=== PATIENT | female | born 1960 | race African-American/Black ===

== ENCOUNTER 2017-01-10 09:50 | Emergency (ER) | payer OTHER ==
[2017-01-10 10:13] VITALS: TEMP 97.9; BMI 40.3
--- NOTE | 2017-01-10 10:48 | PDOC ---
History of Present Illness - General Chief Complaint: Shortness of Breath Stated Complaint: SOB Time Seen by Provider: 01/10/17 10:05 History Source: Patient - History of Present Illness Initial Comments: 01/10/17 10:48 Patient is a 56 y.o. female with a PMH of HTN, IDDM and Asthma who presents c/o of a two day h/o of shortness of breath as well as a c/o not knowing how to use her insulin pen properly. Patient states her shortness of breath resolved en route to the hospital and denies any current dyspnea, chest pain, abdominal pain fevers, chills. Patient does note diarrhea two days previous (likely 2/2 to Metformin). Patient was recently (Saturday 01/06) evaluated at [facility] where she was diagnosed with DM and HTN. Patient states she was asymptomatic, she had visited her PCP, Dr. Vasquez, who sent her to the hospital upon finding an elevated BS. Today patient repeatedly c/o not knowing how to use her insulin pen or how to check her blood sugar at home. PMD: Dr. Natalia TAYLOR Surgical: none Social: denies nicotine (quit on Saturday 01/06 following IDDM/HTN diagnosis), denies alcohol, denies recreational drugs Past History - Past Medical History Allergies/Adverse Reactions: Allergies Allergy/AdvReac Type Severity Reaction Status Date / Time No Known Drug Allergies Allergy Verified 01/10/17 10:01 Home Medications: Ambulatory Orders Albuterol Sulfate Inhaler - [Ventolin Hfa Inhaler -] 2 inh PO Q6H 01/10/17 Budesonide/Formeterol Fumarate [SYMBICORT 160/4.5mcg -] 1 inh PO DAILY 01/10/17 Liraglutide [Victoza -] 1.8 mg SQ DAILY@0700 01/10/17 Losartan 50Mg/Hctz 12.5MG [Hyzaar -] 1 tab PO DAILY 01/10/17 Metformin HCl [Glucophage -] 500 mg PO BID 01/10/17 Anemia: No Asthma: No Cancer: No Cardiac Disorders: No CVA: No COPD: No CHF: No Dementia: No Diabetes: No GI Disorders: Yes (acid reflux) Disorders: No HTN: No Hypercholesterolemia: No Liver Disease: No Seizures: No Thyroid Disease: No - Surgical History Appendectomy: Yes Orthopedic Surgery: Yes (ankle sx with hardware) - Suicide/Smoking/Psychosocial Hx Smoking History: Current every day smoker Have you smoked in the past 12 months: Yes Number of Cigarettes Smoked Daily: 6 Information on smoking cessation initiated: No 'Breaking Loose' booklet given: 03/08/12 Hx Alcohol Use: Yes (wine cooler) Substance Use Type: Alcohol Hx Substance Use Treatment: (pcp 03/07/12) Review of Systems - Review of Systems Constitutional: No: Chills, Fever Respiratory: Yes: Shortness of Breath, SOB with Exertion, SOB at Rest Cardiac (ROS): Yes: Lightheadedness. No: Chest Pain ABD/GI: No: Constipated, Diarrhea, Nausea, Vomiting : No: Burning, Dysuria Psychiatric: Yes: Anxiety, Depression All Other Systems: Reviewed and Negative *Physical Exam - Vital Signs Last Vital Signs Temp Pulse Resp BP Pulse Ox 97.9 F 90 18 108/70 98 01/10/17 10:05 01/10/17 10:05 01/10/17 10:05 01/10/17 10:05 01/10/17 10:05 - Physical Exam General Appearance: Yes: Nourished, Obese Neck: positive: Trachea midline, Supple Respiratory/Chest: positive: Lungs Clear, Normal Breath Sounds Cardiovascular: positive: S1, S2 Gastrointestinal/Abdominal: positive: Soft Musculoskeletal: negative: CVA Tenderness Neurologic: positive: Fully Oriented, Alert Medical Decision Making - Medical Decision Making 01/10/17 10:59 Patient is a 56 y.o. female who presents w/a c/o of shortness of breath ( resolved by time of presentation) as well as seeking diabetes education. At presentation patient was breathing comfortably (non-labored respirations, no accessory muscle use) on room air (SpO2 high 90's). Clinical suspicion for acute pulmonary process is low as patient is afebrile, denies cough, pleuritic chest pain and is breathing comfortably. PLAN: 1. CXR, EKG 2. Diabetes education 01/10/17 11:06 CXR shows no acute cardiopulmonary process. Spoke with medical technologist chief @ Dr. Juanjose Blandon's office: Patient evaluated on 01/05 and 01/06; BS 224, HbA1c 7.1, WBC 16.3; will send outpatient prescription for glucometer and home BP monitoring kit. Patient to receive diabetic education on proper use of insulin pen. Patient to be evaluated in Dr. Blandon's office in the next 3-5 days. Patient discharged home with return precautions and diabetic information sheets. *DC/Admit/Observation/Transfer Diagnosis at time of Disposition: Anxiety, Anxiety about health - Discharge Dispostion Disposition: HOME Admit: No - Referrals Referrals: Juanjose Blandon [Primary Care Provider] -
[2017-01-10 11:54] VITALS: BP 118/88; PULSE 92
--- NOTE | 2017-01-10 12:06 | PDOC ---
Attending Attestation - Resident Resident Name: MonroePetrona - ED Attending Attestation I have performed the following: I have examined & evaluated the patient, The case was reviewed & discussed with the resident, I agree w/resident's findings & plan, Exceptions are as noted - HPI HPI: 01/10/17 12:02 56-year-old female with history of asthma, recently diagnosed hypertension and diabetes started on medications on 12/[address] Blandon, presents now with complaints of malfunctioning glucometer, lack of blood pressure cuff, and some difficulty breathing since last night. Patient is frustrated because she states she did not have any counseling or education on monitoring her glucose levels or administering insulin, states her glucometer stopped working today, that she was never prescribed it blood pressure cuff, and at since last night she's had some shortness of breath/ wheezing typical of her underlying asthma. She denies any chest pain or discomfort, denies any exertional symptoms, reports significant weight gain over the last 2 months secondary to diet changes. Never had stress tests, no fevers or chills. - Physicial Exam PE: 01/10/17 12:04 Vital signs are within normal limits, blood pressure is normal, glucose is 113 Exam is within normal limits as noted, heart is regular with subtle one out of 6 systolic ejection murmur and lungs are clear - Medical Decision Making 01/10/17 12:05 Patient seen and evaluated with the resident. I agree with the overall evaluation, assessment, and management with the following summary of visit: 56-year-old female for follow-up of recent outpatient diagnosis, also with nonspecific shortness of breath since last night, but now asymptomatic without signs or symptoms of ACS or PE or underlying infection. Question whether her difficulty breathing was a mild asthma exacerbation that has resolved, or anxiety/frustration given her recent circumstances. She currently has no cardiopulmonary complaints, and is more focused on getting a working glucometer and blood pressure cuff. Her vital signs are normal here, including her glucose level. Chest x-ray shows no acute pathology We'll check EKG Will discuss case with Dr. Blandon's office and arrange expedited follow-up, if labs have not been checked or if expedited follow-up is not likely, may check labs here.
--- NOTE | 2017-01-10 21:55 | EKG ---
Test Reason : Blood Pressure : / mmHG Vent. Rate : 090 BPM Atrial Rate : 090 BPM P-R Int : 158 ms QRS Dur : 080 ms QT Int : 370 ms P-R-T Axes : 036 -22 003 degrees QTc Int : 452 ms NORMAL SINUS RHYTHM MODERATE VOLTAGE CRITERIA FOR LVH, MAY BE NORMAL VARIANT BORDERLINE ECG WHEN COMPARED WITH ECG OF 09-APR-2014 17:21, NO SIGNIFICANT CHANGE WAS FOUND CLINICAL CORRELATION IS RECOMMENDED Confirmed by RHEA COLLADO MD ([id number]) on 01/10/2017 9:54:51 PM Referred By: Confirmed By:RHEA COLLADO MD
== END 2017-01-10 12:55 | disposition home or self-care (01) ==
LOC: JER 09:50
DX: F06.4 Anxiety disorder due to known physiological condition (principal); J45.909 Unspecified asthma, uncomplicated; I10 Essential (primary) hypertension; E11.9 Type 2 diabetes mellitus without complications; Z79.4 Long term (current) use of insulin; Z79.84 Long term (current) use of oral hypoglycemic drugs
CPT/HCPCS: 71020-TC; 93005; 93010; 99284-25

== ENCOUNTER 2017-01-24 02:06 | Emergency (ER) | payer OTHER ==
[2017-01-24 02:26] VITALS: BP 141/76; PULSE 112; TEMP 99.5; BMI 39.4
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
[2017-01-24 04:00] LABS: BASOPHIL 1.4 % (0-2.0); EOSINOPHIL 1.1 % (0-4.5); MCH 28.8 pg (25.7-33.7); MEAN CELL VOLUME 87.3 fl (80-96); MEAN PLT VOLUME 8.8 fl (7.5-11.1); NEUTROPHILS 61.5 % (42.8-82.8); PLATELET COUNT 269 K/MM3 (134-434); RDW 16.3 % (11.6-15.6); WHITE BLOOD COUNT 10.8 K/mm3 (4.0-10.0)
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
[2017-01-24 06:23] LABS: ALBUMIN 3.2 g/dl (3.4-5.0); ALK PHOS 106 U/L (45-117); ANION GAP 9 (8-16); BILIRUBIN,TOTAL 0.2 mg/dL (0.2-1.0); CALCIUM 8.8 mg/dL (8.5-10.1); CO2 27 mmol/L (21-32); CREATININE 1.1 mg/dL (0.55-1.02); GLUCOSE,RANDOM 109 mg/dL (74-106); SGOT/AST 16 U/L (15-37); SGPT/ALT 32 U/L (12-78); TOT PROT 6.8 g/dl (6.4-8.2)
--- NOTE | 2017-01-24 14:15 | EKG ---
Test Reason : Blood Pressure : / mmHG Vent. Rate : 104 BPM Atrial Rate : 104 BPM P-R Int : 154 ms QRS Dur : 080 ms QT Int : 332 ms P-R-T Axes : 055 -25 051 degrees QTc Int : 436 ms SINUS TACHYCARDIA MINIMAL VOLTAGE CRITERIA FOR LVH, MAY BE NORMAL VARIANT SLOW R WAVE PROGRESSION V1-V3 WHEN COMPARED WITH ECG OF 10-JAN-2017 12:06, NO SIGNIFICANT CHANGE WAS FOUND Confirmed by RHEA COLLADO MD ([id number]) on 01/24/2017 2:15:22 PM Referred By: Confirmed By:RHEA COLLADO MD
== END 2017-01-24 07:01 | disposition home or self-care (01) ==
LOC: JER 02:06
DX: F41.8 Other specified anxiety disorders (principal); I10 Essential (primary) hypertension; E11.9 Type 2 diabetes mellitus without complications; Z79.84 Long term (current) use of oral hypoglycemic drugs
CPT/HCPCS: 36415; 71010-TC; 80053; 84484; 85025; 93005; 93010; 99281-25

== ENCOUNTER 2017-02-04 15:47 | Emergency (ER) | payer OTHER ==
[2017-02-04] MEDS ORDERED: LOSARTAN 50MG/HCTZ 12.5MG 1 TAB (FP) PO ONE ×2 (16:21→16:23)
[2017-02-04] MEDS ORDERED: metFORMIN HCL 500 MG TABLET (FP) PO ONE ×3 (16:22→16:56)
[2017-02-04 16:26] VITALS: BP 137/87; PULSE 92; TEMP 98.5; BMI 34.3
--- NOTE | 2017-02-04 16:26 | PDOC ---
History of Present Illness - General Chief Complaint: RX Refill Stated Complaint: MEDICATION REFILL Time Seen by Provider: 02/04/17 16:03 History Source: Patient Exam Limitations: No Limitations - History of Present Illness Initial Comments: 02/04/17 16:25 Patient is a 56F with a history of HTN, NIDDM, HTN, and Asthma here today requesting a medication refill. She states that she is out of pills today but her pharmacy is closed until Monday. The patient takes Metformin 500 and Losartan/HCTZ 50/12.5 daily. She has empty bottles available with appropriate dates to be due for a refill. Patient has no other complaints. Denies chest pain , shortness of breath, headaches, nausea, vomiting, fevers and chills. Patient is demanding finger glucose test and food. Arrived by ambulance. Making threats towards people outside of the hospital over the phone. Past History - Past Medical History Allergies/Adverse Reactions: Allergies Allergy/AdvReac Type Severity Reaction Status Date / Time No Known Drug Allergies Allergy Verified 02/04/17 16:26 Home Medications: Ambulatory Orders Albuterol Sulfate Inhaler - [Ventolin Hfa Inhaler -] 2 inh PO Q6H 01/10/17 Budesonide/Formeterol Fumarate [SYMBICORT 160/4.5mcg -] 1 inh PO DAILY 01/10/17 Liraglutide [Victoza -] 1.8 mg SQ DAILY@0700 01/10/17 Losartan 50Mg/Hctz 12.5MG [Hyzaar -] 1 tab PO DAILY 01/10/17 Metformin HCl [Glucophage -] 500 mg PO BID 01/10/17 Anemia: No Asthma: No Cancer: No Cardiac Disorders: No CVA: No COPD: No CHF: No Dementia: No Diabetes: No GI Disorders: Yes (acid reflux) Disorders: No HTN: No Hypercholesterolemia: No Liver Disease: No Seizures: No Thyroid Disease: No - Surgical History Appendectomy: Yes Orthopedic Surgery: Yes (ankle sx with hardware) - Suicide/Smoking/Psychosocial Hx Smoking History: Never smoked Have you smoked in the past 12 months: No Number of Cigarettes Smoked Daily: 6 'Breaking Loose' booklet given: 03/08/12 Hx Alcohol Use: No Drug/Substance Use Hx: No Substance Use Type: Alcohol Hx Substance Use Treatment: (pcp 03/07/12) Review of Systems - Review of Systems Comments:: 02/04/17 16:35 GENERAL/CONSTITUTIONAL: No fever or chills. No weakness. HEAD, EYES, EARS, NOSE AND THROAT: No change in vision. No ear pain or discharge. No sore throat. CARDIOVASCULAR: No chest pain or shortness of breath RESPIRATORY: No cough, wheezing, or hemoptysis. GASTROINTESTINAL: No nausea, vomiting, diarrhea or constipation. GENITOURINARY: No dysuria, frequency, or change in urination. SKIN: No rash NEUROLOGIC: No headache, vertigo, loss of consciousness, or change in strength/ sensation. ENDOCRINE: No increased thirst. No abnormal weight change ALLERGIC/IMMUNOLOGIC: No hives or skin allergy. *Physical Exam - Physical Exam Comments: 02/04/17 16:36 GENERAL: Awake, alert, and fully oriented, in no acute distress HEAD: No signs of trauma, normocephalic, atraumatic EYES: PERRLA, EOMI, sclera anicteric, conjunctiva clear ENT: Auricles normal inspection, hearing grossly normal, nares patent, oropharynx clear without exudates. Moist mucosa NECK: Normal ROM, supple, no lymphadenopathy, JVD, or masses LUNGS: No distress, speaks full sentences, clear to auscultation bilaterally HEART: Regular rate and rhythm, normal S1 and S2, no murmurs, rubs or gallops, peripheral pulses normal and equal bilaterally. EXTREMITIES: Normal inspection, Normal range of motion, no edema. No clubbing or cyanosis. NEUROLOGICAL: Cranial nerves II through XII grossly intact. Normal speech, normal gait, no focal sensorimotor deficits SKIN: Warm, Dry, normal turgor, no rashes or lesions noted. Medical Decision Making - Medical Decision Making 02/04/17 16:36 Patient is a 56 yo here today for medication refill Glucose normal. Will give two loose pills of her home medication each. Patient given education regarding appropriate use of EMS and the ED. Patient continued to be demanding and belligerent in the ED. Has so far demanded [place] for her sandwich and yelled to the entire ED asking what time it is. Told triage she has bed bugs. Appropriate precautions taken. Discharged with instructions to go to the pharmacy monday. *DC/Admit/Observation/Transfer Diagnosis at time of Disposition: Medication refill - Discharge Dispostion Disposition: HOME Condition at time of disposition: Good Admit: No - Referrals Referrals: Juanjose Blandon [Primary Care Provider] - - Patient Instructions Printed Discharge Instructions: How to Refill a Prescription - Post Discharge Activity
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
[2017-02-04] MEDS ORDERED: metFORMIN HCL 500 MG TABLET (FP) ONE ×2 (16:37→16:56)
== END 2017-02-04 17:11 | disposition home or self-care (01) ==
LOC: JER 15:47
DX: I10 Essential (primary) hypertension (principal); E11.9 Type 2 diabetes mellitus without complications; Z79.84 Long term (current) use of oral hypoglycemic drugs
CPT/HCPCS: 99283-25

== ENCOUNTER 2017-02-12 22:04 | Emergency (ER) | payer OTHER ==
[2017-02-12 22:12] VITALS: BP 129/78; PULSE 104; TEMP 97.9; BMI 37.4
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
[2017-02-12 22:56] LABS: EOSINOPHIL 1.7 % (0-4.5); MCH 28.7 pg (25.7-33.7); MCHC 32.3 g/dl (32.0-36.0); MEAN CELL VOLUME 88.9 fl (80-96); MEAN PLT VOLUME 9.4 fl (7.5-11.1); NEUTROPHILS 54.6 % (42.8-82.8); PLATELET COUNT 250 K/MM3 (134-434); RDW 16.4 % (11.6-15.6)
[2017-02-12 23:10] LABS: URINE APPEARANCE SLCLOUDY; URINE BILIRUBIN NEGATIVE (NEGATIVE); URINE BLOOD NEGATIVE (NEGATIVE); URINE COLOR YELLOW; URINE GLUCOSE (UA) NEGATIVE (NEGATIVE); URINE KETONE NEGATIVE (NEGATIVE); URINE NITRITE NEGATIVE (NEGATIVE); URINE PROTEIN NEGATIVE (NEGATIVE); URINE UROBILINOGEN NEGATIVE mg/dL (0.2-1.0)
[2017-02-12 23:12] LABS: ALBUMIN 3.6 g/dl (3.4-5.0); ANION GAP 8 (8-16); BILIRUBIN,TOTAL 0.2 mg/dL (0.2-1.0); CALCIUM 8.8 mg/dL (8.5-10.1); CO2 30 mmol/L (21-32); CREATININE 1.2 mg/dL (0.55-1.02); GLUCOSE,RANDOM 111 mg/dL (74-106); SGOT/AST 13 U/L (15-37); SGPT/ALT 31 U/L (12-78); TOT PROT 7.4 g/dl (6.4-8.2)
[2017-02-12 23:14] LABS: URINE MARIJUANA THC NEGATIVE ng/ml (CUTOFF=50)
[2017-02-12 23:21] LABS: ALK PHOS 132 U/L (45-117); CPK 77 IU/L (26-192); THYROID STIMULATING HORMONE 0.71 uIU/ml (0.358-3.74); TROPONIN I < 0.02 ng/ml (0.00-0.05)
--- NOTE | 2017-02-13 09:53 | EKG ---
Test Reason : Blood Pressure : / mmHG Vent. Rate : 097 BPM Atrial Rate : 097 BPM P-R Int : 150 ms QRS Dur : 080 ms QT Int : 362 ms P-R-T Axes : 054 -19 062 degrees QTc Int : 459 ms NORMAL SINUS RHYTHM NORMAL ECG WHEN COMPARED WITH ECG OF 24-JAN-2017 02:20, NO SIGNIFICANT CHANGE WAS FOUND Confirmed by PHOENIX ORTIZ MD ([id number]) on 02/13/2017 9:53:02 AM Referred By: Confirmed By:PHOENIX ORTIZ MD
[2017-02-13 14:12] LABS: URINE LEUK ESTERASE 1+ (NEGATIVE)
[2017-02-13 16:10] LABS: URIC ACID CRYSTALS MODERATE /hpf (NONE SEEN); URINE BACTERIA MODERATE /hpf (NEGATIVE)
[2017-02-13 16:11] LABS: URINE HYALINE CAST FEW /lpf
== END 2017-02-13 00:42 | disposition home or self-care (01) ==
LOC: JER 22:04
DX: F16.20 Hallucinogen dependence, uncomplicated (principal); I10 Essential (primary) hypertension; E11.9 Type 2 diabetes mellitus without complications; Z79.84 Long term (current) use of oral hypoglycemic drugs; F17.210 Nicotine dependence, cigarettes, uncomplicated
CPT/HCPCS: 36415; 80053; 80307; 81003; 81015; 82550; 84443; 84484; 84703; 85025; 93005; 93010; 99284-25

== ENCOUNTER 2017-02-20 00:57 | Emergency (ER) | payer OTHER ==
[2017-02-20 01:27] VITALS: BP 131/58; PULSE 98; TEMP 98.5; BMI 34.9
--- NOTE | 2017-02-20 02:37 | PDOC ---
History of Present Illness - General Chief Complaint: Pain Stated Complaint: PAIN Time Seen by Provider: 02/20/17 01:58 History Source: Patient Exam Limitations: No Limitations - History of Present Illness Initial Comments: 02/20/17 02:31 Patient is a 56-year-old female with history of hypertension, diabetes, asthma, (+) PCP, here to have her blood pressure and blood sugar checked. States she just wants it checked because she has no machine at home, so called EMS to be transported to the hospital. States she was at the hospital 2-3 days ago for similar issue. States her doctor is on vacation and unable to get a prescription for a machine. Headache earlier and she had been eat-in foods that she should not be eat-in such as we could take up high and upon. She has no other specific complaints. Denies, SALAS, nausea, vomiting, fever, chills, cough, weakness. PMD: Dr. Blandon PMHX: as above PSocHx: (+) drug use PCP, ALL: NKDA GENERAL/CONSTITUTIONAL: [No fever or chills. No weakness. No weight change.] HEAD, EYES, EARS, NOSE AND THROAT: [No change in vision. No ear pain or discharge. No sore throat.] CARDIOVASCULAR: [No chest pain or shortness of breath.] RESPIRATORY: [No cough, wheezing, or hemoptysis.] GASTROINTESTINAL: [No nausea, vomiting, diarrhea or constipation. No rectal bleeding.] GENITOURINARY: [No dysuria, frequency, or change in urination.] MUSCULOSKELETAL: [No joint or muscle swelling or pain. No neck or back pain.] SKIN AND BREASTS: [No rash or easy bruising.] NEUROLOGIC: [No headache, vertigo, loss of consciousness, or loss of sensation.] PSYCHIATRIC: (+) depression or anxiety.] ENDOCRINE: [No increased thirst. No abnormal weight change.] HEMATOLOGIC/LYMPHATIC: [No anemia, easy bleeding, or history of blood clots.] ALLERGIC/IMMUNOLOGIC: [No hives or skin allergy. No latex allergy.] GENERAL: [The patient is awake, alert, and fully oriented, in no acute distress. ] HEAD: [Normal with no signs of trauma.] EYES: [Pupils equal, round and reactive to light, extraocular movements intact, sclera anicteric, conjunctiva clear.] ENT: [Ears normal, nares patent, oropharynx clear without exudates. Moist mucous membranes.] NECK: [Normal range of motion, supple without lymphadenopathy, JVD, or masses.] LUNGS: [Breath sounds equal, clear to auscultation bilaterally. No wheezes, and no crackles.] HEART: [Regular rate and rhythm, normal S1 and S2 without murmur, rub.] ABDOMEN: [Soft, nontender, normoactive bowel sounds. No guarding, no rebound. No masses.] EXTREMITIES: [Normal range of motion, no edema. No clubbing or cyanosis. No cords, erythema, or tenderness.] NEUROLOGICAL: [Cranial nerves II through XII grossly intact. Normal speech, normal gait.] PSYCH: [Normal mood, normal affect.] SKIN: [Warm, Dry, normal turgor, no rashes or lesions noted.] Past History - Past Medical History Allergies/Adverse Reactions: Allergies Allergy/AdvReac Type Severity Reaction Status Date / Time No Known Drug Allergies Allergy Verified 02/20/17 01:26 Home Medications: Ambulatory Orders Albuterol Sulfate Inhaler - [Ventolin Hfa Inhaler -] 2 inh PO Q6H 01/10/17 Budesonide/Formeterol Fumarate [SYMBICORT 160/4.5mcg -] 1 inh PO DAILY 01/10/17 Liraglutide [Victoza -] 1.8 mg SQ DAILY@0700 01/10/17 Losartan 50Mg/Hctz 12.5MG [Hyzaar -] 1 tab PO DAILY 01/10/17 Metformin HCl [Glucophage -] 500 mg PO BID 01/10/17 Anemia: No Asthma: No Cancer: No Cardiac Disorders: No CVA: No COPD: No CHF: No DVT: No Dementia: No Diabetes: No Dialysis: No GI Disorders: Yes (acid reflux) Disorders: No HTN: No Hypercholesterolemia: No Kidney Stones: No Liver Disease: No Psychiatric Problems: No Seizures: No Thyroid Disease: No Lung CA: No - Surgical History Appendectomy: Yes Orthopedic Surgery: Yes (ankle sx with hardware) - Suicide/Smoking/Psychosocial Hx Smoking History: Never smoked Have you smoked in the past 12 months: No Number of Cigarettes Smoked Daily: 6 Information on smoking cessation initiated: No 'Breaking Loose' booklet given: 12/13/12 Hx Alcohol Use: No Drug/Substance Use Hx: No Substance Use Type: Alcohol Hx Substance Use Treatment: (pcp 03/07/12) *Physical Exam - Vital Signs Last Vital Signs Temp Pulse Resp BP Pulse Ox 98.5 F 98 H 20 131/58 96 02/20/17 01:26 02/20/17 01:26 02/20/17 01:26 02/20/17 01:26 02/20/17 01:26 Medical Decision Making - Medical Decision Making 02/20/17 02:35 Patient is a 56 year old female with h/o DM, HTN c/o here for b/p and BS check due to no machine at home. Patient has FS 144 and b/p of 131/58 no need for acute intervention. will discharge I discussed the physical exam findings, ancillary test results and final diagnoses with the patient. I answered all of the patient's questions. The patient was satisfied with the care received and felt comfortable with the discharge plan and treatment plan. The Patient agrees to follow up with the primary care physician within 24-72 hours. *DC/Admit/Observation/Transfer Diagnosis at time of Disposition: General medical exam Diagnosis at time of Disposition: (Ruled Out): Respirator Medical Evaluation Questionnaire response indicative of potential risk - Discharge Dispostion Disposition: HOME Condition at time of disposition: Stable - Referrals Referrals: Juanjose Blandon [Primary Care Provider] - - Patient Instructions Printed Discharge Instructions: JUWAN for Physical Exam -- Adult Additional Instructions: I discussed the physical exam findings, ancillary test results and final diagnoses with the patient. I answered all of the patient's questions. The patient was satisfied with the care received and felt comfortable with the discharge plan and treatment plan. The Patient agrees to follow up with the primary care physician within 24-72 hours. - Post Discharge Activity
== END 2017-02-20 02:41 | disposition home or self-care (01) ==
LOC: JER 00:57
DX: E11.9 Type 2 diabetes mellitus without complications (principal); Z79.84 Long term (current) use of oral hypoglycemic drugs; I10 Essential (primary) hypertension; F16.10 Hallucinogen abuse, uncomplicated
CPT/HCPCS: 99281-25

== ENCOUNTER 2017-08-26 03:48 | Emergency (ER) | payer OTHER ==
--- NOTE | 2017-08-26 03:55 | PDOC ---
History of Present Illness - General Stated Complaint: BLOOD PRESSURE PROBLEM Time Seen by Provider: 08/26/17 03:55 - History of Present Illness Initial Comments: 08/26/17 04:09 The patient 56 year old female with a history of HTN, HLD, DM who presents for evaluation of elevated blood pressure and headache. The patient reports onset of headache earlier this evening. She notes that she ran out of her blood pressure medication and has not taken it in several days. She was concerned her blood pressure was elevated prompting her presentation to the ED for further evaluation. She otherwise denies fevers, chills, SOB, chest pain, nausea, vomiting, abdominal pain, numbness, tingling, weakness, or changes with urination or bowel movements. Past History - Past Medical History Allergies/Adverse Reactions: Allergies Allergy/AdvReac Type Severity Reaction Status Date / Time No Known Drug Allergies Allergy Verified 08/26/17 03:58 Home Medications: Ambulatory Orders Albuterol Sulfate Inhaler - [Ventolin Hfa Inhaler -] 2 inh PO Q6H 01/10/17 Budesonide/Formeterol Fumarate [SYMBICORT 160/4.5mcg -] 1 inh PO DAILY 01/10/17 Liraglutide [Victoza -] 1.8 mg SQ DAILY@0700 01/10/17 metFORMIN HCL [Glucophage -] 500 mg PO BID 01/10/17 Losartan 50Mg/Hctz 12.5MG [Hyzaar -] 1 tab PO DAILY #30 tablet 08/26/17 Losartan/Hydrochlorothiazide [Hyzaar 50-12.5 Tablet] 1 each PO DAILY #30 tablet 08/26/17 Anemia: No Asthma: No Cancer: No Cardiac Disorders: No CVA: No COPD: No CHF: No DVT: No Dementia: No Diabetes: No Dialysis: No GI Disorders: Yes (acid reflux) Disorders: No HTN: No Hypercholesterolemia: No Kidney Stones: No Liver Disease: No Psychiatric Problems: No Seizures: No Thyroid Disease: No Lung CA: No - Surgical History Appendectomy: Yes Orthopedic Surgery: Yes (ankle sx with hardware) - Suicide/Smoking/Psychosocial Hx Smoking History: Never smoked Have you smoked in the past 12 months: No Number of Cigarettes Smoked Daily: 6 'Breaking Loose' booklet given: 03/08/12 Hx Alcohol Use: No Drug/Substance Use Hx: No Substance Use Type: Alcohol Hx Substance Use Treatment: (pcp 03/07/12) Review of Systems - Review of Systems Comments:: 08/26/17 04:11 Constitutional: No fevers, chills, fatigue, malaise HEENT: No Rhinorrhea, nasal congestion, visual changes Cardiovascular: No chest pain, syncope, palpitations, lightheadedness Respiratory: No Cough, SOB, Hemoptysis, Gastrointestinal: No Abdominal pain, Nausea, Vomiting, Constipation, Diarrhea, Melena Genitourinary: No Dysuria, Frequency, Urgency, Hesitancy, Hematuria, Flank pain Musculoskeletal: No Myalgia, arthralgia Skin: No rashes, itching, bruising, pallor Neurologic: Headache. No Dizziness, Numbness, Weakness, or Tingling Psychiatric: No Hallucinations. No SI or HI *Physical Exam - Physical Exam Comments: 08/26/17 04:11 General Appearance: Nourished. No Apparent Distress HEENT: EOMI, PÉREZ. No Pharyngeal Erythema, Tonsillar Exudate, Tonsillar Erythema Neck: No Cervical Lymphadenopathy Respiratory/Chest: Lungs Clear, Normal Breath Sounds. No Crackles, Rales, Rhonchi, Wheezing Cardiovascular: Regular Rhythm, Regular Rate. No Murmur, Gallops, Rubs Gastrointestinal/Abdominal: Normal Bowel Sounds, Soft. No Guarding, Rebound, Tenderness Musculoskeletal: No CVA Tenderness Extremity: Normal Capillary Refill Integumentary: Normal Color, Dry, Warm Neurologic: brief writer II-XII NML intact, Fully Oriented, Alert, Normal Mood/Affect, Normal Response, Motor Strength 5/5. Heart Score/ECG Review #1 ECG reviewed & interpreted by me at: 06:10 General ECG Interpretation: Sinus Rhythm, Normal Rate, Normal Intervals, No acute ischemic changes ED Treatment Course - LABORATORY CBC & Chemistry Diagram: 08/26/17 04:45 08/26/17 04:45 Medical Decision Making - Medical Decision Making 08/26/17 04:11 The patient 56 year old female with a history of HTN, HLD, DM who presents for evaluation of elevated blood pressure and headache. The patient is hypertensive here in the ED likely due to her medication non-compliance. We will obtain a cbc, cmp, ekg to evaluate further and treat the patient with losartan/hydrochlorothiazide and tylenol here in the ED and continue to monitor and reassess. 08/26/17 06:11 CBC, cmp, ekg are unremarkable. We are comfortable discharging the patient home with her normal BP medication and primary care provider follow up. We discussed the results, plan, and return precautions with the patient who voiced understanding and is agreeable with the plan. *DC/Admit/Observation/Transfer Diagnosis at time of Disposition: Headache Qualifiers: Headache type: unspecified Headache chronicity pattern: unspecified pattern Intractability: not intractable Qualified Code(s): R51 - Headache - Discharge Dispostion Disposition: HOME Condition at time of disposition: Stable Decision to Admit order: No - Prescriptions Prescriptions: Losartan 50Mg/Hctz 12.5MG [Hyzaar -] 1 tab PO DAILY #30 tablet Losartan/Hydrochlorothiazide [Hyzaar 50-12.5 Tablet] 1 each PO DAILY #30 tablet - Referrals Referrals: Juanjose Blandon [Primary Care Provider] - - Patient Instructions Printed Discharge Instructions: DI for High Blood Pressure, DI for Headache Additional Instructions: Please return to the ER if you experience concerning or worsening symptoms including worsening headache, chest pain, or difficulty breathing. Your lab results were normal here in the ER. We have sent a prescription for your blood pressure medication to your pharmacy that you should take as directed. Please call to schedule a follow up appointment with your primary care provider within 2-3 days to discuss your ER visit and further management of your symptoms. - Post Discharge Activity
[2017-08-26 04:02] VITALS: TEMP 98.8; BMI 38.1
[2017-08-26] MEDS ORDERED: LOSARTAN 50MG/HCTZ 12.5MG 1 TAB (FP) PO ONE ×2 (04:04→06:32)
[2017-08-26] MEDS ORDERED: ACETAMINOPHEN 325 MG TABLET (FP) PO ONE (04:04)
[2017-08-26] MEDS ORDERED: ACETAMINOPHEN 325 MG TABLET (FP) ONE (04:26)
[2017-08-26 05:09] LABS: BASO % 0.9 % (0-2.0); EOS % 0.7 % (0-4.5); HEMATOCRIT 43.6 % (32.4-45.2); HEMOGLOBIN 14.1 GM/dL (10.7-15.3); LYMPH % 28.3 % (8-40); MCH 28.6 pg (25.7-33.7); MCHC 32.3 g/dl (32.0-36.0); MEAN CELL VOLUME 88.8 fl (80-96); MONO % 5.7 % (3.8-10.2); NEUT % 64.4 % (42.8-82.8); PLATELET COUNT 299 K/MM3 (134-434); RBC 4.92 M/mm3 (3.60-5.2); RDW 16.5 % (11.6-15.6); WHITE BLOOD COUNT 10.4 K/mm3 (4.0-10.0)
[2017-08-26 05:31] LABS: ALBUMIN 3.5 g/dl (3.4-5.0); ANION GAP 8 (8-16); BILIRUBIN,TOTAL 0.3 mg/dL (0.2-1.0); BLOOD UREA NITROGEN 12 mg/dL (7-18); CALCIUM 9.5 mg/dL (8.5-10.1); CHLORIDE 106 mmol/L (98-107); CO2 27 mmol/L (21-32); CREATININE 0.8 mg/dL (0.55-1.02); GLUCOSE,RANDOM 104 mg/dL (74-106); POTASSIUM 4.1 mmol/L (3.5-5.1); SGOT/AST 15 U/L (15-37); SGPT/ALT 22 U/L (12-78); SODIUM 141 mmol/L (136-145); TOT PROT 7.3 g/dl (6.4-8.2)
[2017-08-26 05:32] LABS: ALK PHOS 114 U/L (45-117)
--- NOTE | 2017-08-26 07:23 | PDOC ---
*Physical Exam - Vital Signs Last Vital Signs Temp Pulse Resp BP Pulse Ox 98.8 F 107 H 18 151/93 96 08/26/17 03:58 08/26/17 06:40 08/26/17 03:58 08/26/17 05:09 08/26/17 06:40 ED Treatment Course - LABORATORY CBC & Chemistry Diagram: 08/26/17 04:45 08/26/17 04:45 - ADDITIONAL ORDERS Additional order review: Laboratory Results 08/26/17 04:45 Sodium 141 Potassium 4.1 Chloride 106 Carbon Dioxide 27 Anion Gap 8 BUN 12 Creatinine 0.8 Creat Clearance w eGFR > 60 Random Glucose 104 Calcium 9.5 Total Bilirubin 0.3 D AST 15 ALT 22 Alkaline Phosphatase 114 Total Protein 7.3 Albumin 3.5 08/26/17 04:45 RBC 4.92 MCV 88.8 MCHC 32.3 RDW 16.5 H MPV 9.0 Neutrophils % 64.4 Lymphocytes % 28.3 Monocytes % 5.7 Eosinophils % 0.7 Basophils % 0.9 - Medications Given in the ED: ED Medications Discontinued Medications Generic Name Dose Route Start Last Admin Trade Name Freq PRN Reason Stop Dose Admin Acetaminophen 650 mg 08/26/17 04:04 08/26/17 04:16 Tylenol - PO 08/26/17 04:05 650 mg ONCE ONE Administration HCTZ/Losartan Potassium 1 tab 08/26/17 04:04 08/26/17 04:16 Hyzaar - PO 08/26/17 04:05 1 tab ONCE ONE Administration HCTZ/Losartan Potassium 1 tab 08/26/17 06:32 08/26/17 06:42 Hyzaar - PO 08/26/17 06:33 1 tab ONCE ONE Administration Medical Decision Making - Medical Decision Making 56 year old female who just experienced a stressful life event that she doesn't want to speak about presenting with slightly elevated blood pressure in the setting of medication non-compliance. Repeat pressure was 143/80 and pulse 80s. Will DC with PCP follow up and refill per sign out from Dr. Tracy. 08/26/17 07:15 *DC/Admit/Observation/Transfer Diagnosis at time of Disposition: Headache Qualifiers: Headache type: unspecified Headache chronicity pattern: unspecified pattern Intractability: not intractable Qualified Code(s): R51 - Headache - Discharge Dispostion Disposition: HOME Condition at time of disposition: Stable - Prescriptions Prescriptions: Losartan 50Mg/Hctz 12.5MG [Hyzaar -] 1 tab PO DAILY #30 tablet - Referrals Referrals: Juanjose Blandon [Primary Care Provider] - - Patient Instructions Printed Discharge Instructions: DI for High Blood Pressure, DI for Headache Additional Instructions: Please return to the ER if you experience concerning or worsening symptoms including worsening headache, chest pain, or difficulty breathing. Your lab results were normal here in the ER. We have sent a prescription for your blood pressure medication to your pharmacy that you should take as directed. Please call to schedule a follow up appointment with your primary care provider within 2-3 days to discuss your ER visit and further management of your symptoms. - Post Discharge Activity
[2017-08-26 08:46] VITALS: BP 134/84; PULSE 78
--- NOTE | 2017-08-27 22:18 | EKG ---
Test Reason : Blood Pressure : / mmHG Vent. Rate : 098 BPM Atrial Rate : 098 BPM P-R Int : 154 ms QRS Dur : 076 ms QT Int : 340 ms P-R-T Axes : 069 -32 034 degrees QTc Int : 434 ms NORMAL SINUS RHYTHM LEFT AXIS DEVIATION MODERATE VOLTAGE CRITERIA FOR LVH, MAY BE NORMAL VARIANT NONSPECIFIC ST ABNORMALITY ABNORMAL ECG WHEN COMPARED WITH ECG OF 12-FEB-2017 23:06, NO SIGNIFICANT CHANGE WAS FOUND Confirmed by RICHARD SIMONS MD ([id number]) on 08/27/2017 10:18:48 PM Referred By: Confirmed By:RICHARD SIMONS MD
== END 2017-08-26 07:30 | disposition home or self-care (01) ==
LOC: JER 03:48
DX: I10 Essential (primary) hypertension (principal); E11.9 Type 2 diabetes mellitus without complications; Z79.84 Long term (current) use of oral hypoglycemic drugs; E78.00 Pure hypercholesterolemia, unspecified; Z91.14 Patient's other noncompliance with medication regimen
CPT/HCPCS: 36415; 80053; 85025; 93005; 93010; 99282-25

== ENCOUNTER 2017-12-16 22:37 | Emergency (ER) | payer OTHER ==
[2017-12-16 22:59] VITALS: BP 143/96; PULSE 84; TEMP 98.5; BMI 35.6
--- NOTE | 2017-12-16 23:29 | PDOC ---
History of Present Illness - General History Source: Patient Exam Limitations: No Limitations - History of Present Illness Initial Comments: 12/16/17 23:50 The patient is a 57 year old female, with a significant PMH of hypertension, anxiety, who presents to the emergency department with a headache beginning tonight. The patient states the headache is rated 6/10 in intensity with no alleviating or exacerbating factors. She denies taking any medications for the pain. The patient reports increased stressors at home as her daughters kids were recently taken away. The patient states she doubled up on her blood pressure medication today as she states her elevated blood pressure may be related to her headache. The patient denies measuring her blood pressure at home. The patient denies chest pain, shortness of breath and dizziness. Denies fever, chills, nausea, vomit, diarrhea and constipation. Denies dysuria, frequency, urgency and hematuria. Allergies: NKA Past surgical history: None reported. Social history: No reported PCP: Dr Blandon <Sukumar Dinero - Last Filed: 12/16/17 23:50> <Dillon Her - Last Filed: 12/17/17 02:42> - General Chief Complaint: Blood Pressure Problem Stated Complaint: ELEVATED HYPERTENSION Time Seen by Provider: 12/16/17 23:28 Past History <Sukumar Dinero - Last Filed: 12/16/17 23:50> - Past Medical History Anemia: No Asthma: No Cancer: No Cardiac Disorders: No CVA: No COPD: No CHF: No DVT: No Dementia: No Diabetes: No Dialysis: No GI Disorders: Yes (acid reflux) Disorders: No HTN: No Hypercholesterolemia: No Kidney Stones: No Liver Disease: No Psychiatric Problems: No Seizures: No Thyroid Disease: No Lung CA: No - Surgical History Appendectomy: Yes Orthopedic Surgery: Yes (ankle sx with hardware) - Suicide/Smoking/Psychosocial Hx Smoking History: Smoker current status UNK Have you smoked in the past 12 months: No Number of Cigarettes Smoked Daily: 6 Information on smoking cessation initiated: No 'Breaking Loose' booklet given: 03/08/12 Hx Alcohol Use: No Drug/Substance Use Hx: No Substance Use Type: Alcohol Hx Substance Use Treatment: (pcp 03/07/12) <Dillon Her - Last Filed: 12/17/17 02:42> - Past Medical History Allergies/Adverse Reactions: Allergies Allergy/AdvReac Type Severity Reaction Status Date / Time No Known Drug Allergies Allergy Verified 12/16/17 23:00 Home Medications: Ambulatory Orders Albuterol Sulfate Inhaler - [Ventolin Hfa Inhaler -] 2 inh PO Q6H 01/10/17 Budesonide/Formeterol Fumarate [SYMBICORT 160/4.5mcg -] 1 inh PO DAILY 01/10/17 Liraglutide [Victoza -] 1.8 mg SQ DAILY@0700 01/10/17 metFORMIN HCL [Glucophage -] 500 mg PO BID 01/10/17 Losartan 50Mg/Hctz 12.5MG [Hyzaar -] 1 tab PO DAILY #30 tablet 08/26/17 Losartan/Hydrochlorothiazide [Hyzaar 50-12.5 Tablet] 1 each PO DAILY #30 tablet 08/26/17 Review of Systems - Review of Systems Comments:: 12/16/17 23:50 A complete review of 10 out of 10 review of systems is taken and is negative apart from what is previously mentioned below and in the HPI. <Sukumar Dinero - Last Filed: 12/16/17 23:50> *Physical Exam - Vital Signs Last Vital Signs Temp Pulse Resp BP Pulse Ox 98.5 F 84 18 143/96 100 12/16/17 22:57 12/16/17 22:57 12/16/17 22:57 12/16/17 22:57 12/16/17 22:57 - Physical Exam Comments: 12/16/17 23:50 Vitals: Triage vital signs reviewed General Appearance: No acute distress, well nourished, well developed Neck: Supple; No nuchal rigidity Chest Wall: Nontender Cardiac: Regular rate and rhythm, no murmurs, no rubs, no gallops Lungs: Clear to auscultation bilateral, good air movement bilaterally Abdomen: Soft, nondistended, normal bowel sounds, nontender to palpation Rectal: Exam deferred Extremities: Full range of motion to all extremities, no cyanosis, clubbing, or edema Skin: Warm and dry, no rashes or lesions, no rash, no petechiae Neuro: AOX3; Cranial Nerves 2-12 grossly intact, Strength intact to all extremities, Sensation intact to all extremities, gait normal Psych: Normal mood, normal affect <Sukumar Dinero - Last Filed: 12/16/17 23:50> - Vital Signs Last Vital Signs Temp Pulse Resp BP Pulse Ox 98.5 F 84 18 143/96 100 12/16/17 22:57 12/16/17 22:57 12/16/17 22:57 12/16/17 22:57 12/16/17 22:57 <Dillon Her - Last Filed: 12/17/17 02:42> Medical Decision Making - Medical Decision Making 12/17/17 02:40 57 years old presents to the emergency department with asymptomatic hypertension. Patient has been under a lot of stress recently she has had a mild headache which comes and goes but denies any sudden onset or severe headache. She denies chest pain shortness of breath. She took one extra pill of her blood pressure medication currently in the emergency department her blood pressure is 138/77 Her fingerstick was 97 I recommended her continuing her prescribed regimen of blood pressure medications and she'll follow-up on Monday with her primary care provider for a recheck No indication for labs EKG her head CT at this time. Patient with normal neurologic examination Findings, the need for follow-up and strict return instructions discussed with patient. <Dillon Her - Last Filed: 12/17/17 02:42> *DC/Admit/Observation/Transfer - Attestations Scribe Attestion: 12/16/17 23:51 Documentation prepared by Sukumar Dinero, acting as medical concierge for Dillon Her MD. <Sukumar Dinero - Last Filed: 12/16/17 23:50> - Discharge Dispostion Decision to Admit order: No <Dillon Her - Last Filed: 12/17/17 02:42> Diagnosis at time of Disposition: Blood pressure check - Discharge Dispostion Disposition: HOME Condition at time of disposition: Good - Patient Instructions Printed Discharge Instructions: DI for High Blood Pressure Additional Instructions: Take-home medications as prescribed. Take Tylenol as needed for headache. Follow -up with your primary care provider on Monday to have a blood pressure recheck. Return to the emergency department for any concerns.
[2017-12-16] MEDS ORDERED: ACETAMINOPHEN 325 MG TABLET (FP) PO ONE (23:47)
[2017-12-17] MEDS ORDERED: ACETAMINOPHEN 325 MG TABLET (FP) ONE (00:54)
== END 2017-12-17 00:09 | disposition home or self-care (01) ==
LOC: JER 22:37
DX: I10 Essential (primary) hypertension (principal); F41.9 Anxiety disorder, unspecified; K21.9 Gastro-esophageal reflux disease without esophagitis
CPT/HCPCS: 82962; 99281-25

== ENCOUNTER 2017-12-24 02:38 | Emergency (ER) | payer OTHER ==
--- NOTE | 2017-12-24 02:59 | PDOC ---
Attending Attestation - Resident Resident Name: Nadeem Moreno - ED Attending Attestation I have performed the following: I have examined & evaluated the patient, The case was reviewed & discussed with the resident, I agree w/resident's findings & plan - HPI HPI: 12/24/17 02:59 Pt comes with HTN. SHe took a double dose of her antiHTN meds at home. 12/24/17 04:04 On arrival BP is normal - Physicial Exam PE: 12/24/17 03:21 Agree with resident exam. - Medical Decision Making 12/24/17 04:04 EKG is normal Pt is refusing CXR; she is stable for discharge.
[2017-12-24 03:09] VITALS: BP 137/88; PULSE 94; TEMP 98.9; BMI 28.0
--- NOTE | 2017-12-24 03:22 | PDOC ---
History of Present Illness - General Chief Complaint: Blood Pressure Problem Stated Complaint: HYPERTENSIVE EPISODE Time Seen by Provider: 12/24/17 02:54 History Source: Patient Exam Limitations: No Limitations - History of Present Illness Initial Comments: 12/24/17 03:16 57F with pmh of htn (on Losartan) presents to the ED for episode of hypertension earlier tonight (195/99)> She says that she was talking to her sister on the phone and was having an unpleasant conversation. She tends to get hypertensive whenever she thinks about bad things. When she saw that her blood pressure was high she took a whole pill of her losartan which brought back her BP to 130/80 Her brother of a stroke so she is deeply concerned about her blood pressure. Patient gets remarkably frustrated answering simple questions. 12/24/17 03:23 Pressure is 130/55 in the ed 12/24/17 03:25 Patient currently asymptomatic 12/24/17 03:27 Past History - Past Medical History Allergies/Adverse Reactions: Allergies Allergy/AdvReac Type Severity Reaction Status Date / Time No Known Drug Allergies Allergy Verified 12/24/17 03:09 Home Medications: Ambulatory Orders Albuterol Sulfate Inhaler - [Ventolin Hfa Inhaler -] 2 inh PO Q6H 01/10/17 Budesonide/Formeterol Fumarate [SYMBICORT 160/4.5mcg -] 1 inh PO DAILY 01/10/17 Liraglutide [Victoza -] 1.8 mg SQ DAILY@0700 01/10/17 metFORMIN HCL [Glucophage -] 500 mg PO BID 01/10/17 Losartan 50Mg/Hctz 12.5MG [Hyzaar -] 1 tab PO DAILY #30 tablet 08/26/17 Losartan/Hydrochlorothiazide [Hyzaar 50-12.5 Tablet] 1 each PO DAILY #30 tablet 08/26/17 Anemia: No Asthma: No Cancer: No Cardiac Disorders: No CVA: No COPD: No CHF: No DVT: No Dementia: No Diabetes: No Dialysis: No GI Disorders: Yes (acid reflux) Disorders: No HTN: No Hypercholesterolemia: No Kidney Stones: No Liver Disease: No Psychiatric Problems: No Seizures: No Thyroid Disease: No Lung CA: No - Surgical History Appendectomy: Yes Orthopedic Surgery: Yes (ankle sx with hardware) - Suicide/Smoking/Psychosocial Hx Smoking History: Never smoked Have you smoked in the past 12 months: No Number of Cigarettes Smoked Daily: 6 Information on smoking cessation initiated: No 'Breaking Loose' booklet given: 03/08/12 Hx Alcohol Use: No Drug/Substance Use Hx: No Substance Use Type: Alcohol Hx Substance Use Treatment: (pcp 03/07/12) Review of Systems - Review of Systems Able to Perform ROS?: Yes Is the patient limited Montserratian proficient: No Constitutional: No: Symptoms Reported HEENTM: No: Symptoms Reported Respiratory: No: Symptoms reported Cardiac (ROS): No: Symptoms Reported ABD/GI: No: Symptoms Reported : No: Symptoms Reported Musculoskeletal: No: Symptoms Reported Integumentary: No: Symptoms Reported All Other Systems: Reviewed and Negative *Physical Exam - Vital Signs Last Vital Signs Temp Pulse Resp BP Pulse Ox 98.9 F 94 H 18 137/88 99 12/24/17 02:55 12/24/17 02:55 12/24/17 02:55 12/24/17 02:55 12/24/17 02:55 - Physical Exam General Appearance: Yes: Nourished, Appropriately Dressed. No: Apparent Distress HEENT: positive: EOMI, PÉREZ, Normal ENT Inspection Respiratory/Chest: positive: Lungs Clear, Normal Breath Sounds. negative: Chest Tender, Respiratory Distress Cardiovascular: positive: Regular Rhythm, Regular Rate, S1, S2 Gastrointestinal/Abdominal: positive: Normal Bowel Sounds, Flat, Soft. negative : Tender Musculoskeletal: positive: Normal Inspection. negative: CVA Tenderness Extremity: positive: Normal Capillary Refill, Normal Inspection, Normal Range of Motion Integumentary: positive: Normal Color, Dry, Warm Neurologic: positive: Fully Oriented, Alert, Other (Gets easily frustrated answering simple questions) Medical Decision Making - Medical Decision Making 12/24/17 03:27 Patient states that she simply wants a sandwish. Will do ekg and cxr and dispo. 12/24/17 03:59 Patient refused chest xray. EKG: Normal sinus rhythm. Left axis deviation. Moderate voltage criteria for LVH ,may be normal variant. Abnormal EKG ok to discharge *DC/Admit/Observation/Transfer Diagnosis at time of Disposition: General medical exam - Discharge Dispostion Disposition: HOME Condition at time of disposition: Fair Decision to Admit order: No - Referrals Referrals: Juanjose Blandon [Primary Care Provider] - - Patient Instructions Printed Discharge Instructions: How to Monitor Your Blood Pressure at Home Additional Instructions: Come back to the ER for any new, worsening or concerning symptom. - Post Discharge Activity
--- NOTE | 2017-12-25 06:13 | EKG ---
Test Reason : Blood Pressure : / mmHG Vent. Rate : 085 BPM Atrial Rate : 085 BPM P-R Int : 160 ms QRS Dur : 084 ms QT Int : 386 ms P-R-T Axes : 050 -31 009 degrees QTc Int : 459 ms NORMAL SINUS RHYTHM LEFT AXIS DEVIATION MODERATE VOLTAGE CRITERIA FOR LVH, MAY BE NORMAL VARIANT ABNORMAL ECG WHEN COMPARED WITH ECG OF 26-AUG-2017 04:47, NO SIGNIFICANT CHANGE WAS FOUND Confirmed by NARINDER MARINO, SHWETA ([id number]) on 12/25/2017 6:13:18 AM Referred By: Confirmed By:SHWETA BARCENAS MD
== END 2017-12-24 05:18 | disposition home or self-care (01) ==
LOC: JER 02:38
DX: Z00.8 Encounter for other general examination (principal); Z87.891 Personal history of nicotine dependence
CPT/HCPCS: 93005; 93010; 99282-25

== ENCOUNTER 2017-12-31 15:14 | Emergency (ER) | payer OTHER ==
[2017-12-31 15:21] VITALS: BP 142/90; PULSE 86; TEMP 99.1; BMI 36.2
[2017-12-31 17:11] LABS: EOS % 2.1 % (0-4.5); HEMATOCRIT 40.1 % (32.4-45.2); HEMOGLOBIN 12.9 GM/dL (10.7-15.3); LYMPH % 32.2 % (8-40); MCH 29.3 pg (25.7-33.7); MCHC 32.1 g/dl (32.0-36.0); MEAN CELL VOLUME 91.2 fl (80-96); MEAN PLT VOLUME 9.2 fl (7.5-11.1); MONO % 5.7 % (3.8-10.2); PLATELET COUNT 245 K/MM3 (134-434); RBC 4.39 M/mm3 (3.60-5.2); WHITE BLOOD COUNT 7.9 K/mm3 (4.0-10.0)
--- NOTE | 2017-12-31 17:31 | PDOC ---
History of Present Illness - General Chief Complaint: Blood Pressure Problem Stated Complaint: HIGH BLOOD PRESURE Time Seen by Provider: 12/31/17 16:12 History Source: Patient Exam Limitations: No Limitations - History of Present Illness Initial Comments: 01/01/18 00:43 Pt is a 57yo f with pmh of htn presenting to ED with complaints of elevated bp. She checked her bp at home and it was 154/125. She takes losartan. She stated that her bp goes up when she feels stressed. She stated that her daughter's child's father came home and he stressed her out. She came to the ED with him so that he could be evaluated. Pt is denying chest pain, sob, headache, changes in vision, swelling in the legs, fevers, chills, n/v/d, abdominal pain, urinary symptoms. PCP: Barber PMH: htn Meds: losartan Social: denies Allergies: nkda Past History - Past Medical History Allergies/Adverse Reactions: Allergies Allergy/AdvReac Type Severity Reaction Status Date / Time No Known Drug Allergies Allergy Verified 12/31/17 15:21 Home Medications: Ambulatory Orders Albuterol Sulfate Inhaler - [Ventolin Hfa Inhaler -] 2 inh PO Q6H 01/10/17 Budesonide/Formeterol Fumarate [SYMBICORT 160/4.5mcg -] 1 inh PO DAILY 01/10/17 Liraglutide [Victoza -] 1.8 mg SQ DAILY@0700 01/10/17 metFORMIN HCL [Glucophage -] 500 mg PO BID 01/10/17 Losartan 50Mg/Hctz 12.5MG [Hyzaar -] 1 tab PO DAILY #30 tablet 08/26/17 Losartan/Hydrochlorothiazide [Hyzaar 50-12.5 Tablet] 1 each PO DAILY #30 tablet 08/26/17 Anemia: No Asthma: No Cancer: No Cardiac Disorders: No CVA: No COPD: No CHF: No DVT: No Dementia: No Diabetes: Yes Dialysis: No GI Disorders: Yes (acid reflux) Disorders: No HTN: Yes Hypercholesterolemia: No Kidney Stones: No Liver Disease: No Psychiatric Problems: No Seizures: No Thyroid Disease: No Lung CA: No - Surgical History Appendectomy: Yes Orthopedic Surgery: Yes (ankle sx with hardware) - Suicide/Smoking/Psychosocial Hx Smoking History: Current every day smoker Have you smoked in the past 12 months: Yes Number of Cigarettes Smoked Daily: 2 Information on smoking cessation initiated: No 'Breaking Loose' booklet given: 03/08/12 Hx Alcohol Use: No Drug/Substance Use Hx: No Substance Use Type: None Hx Substance Use Treatment: (pcp 03/07/12) Review of Systems - Review of Systems Able to Perform ROS?: Yes Is the patient limited Telugu proficient: No Constitutional: No: Chills, Fever HEENTM: No: Recent change in vision Respiratory: No: Cough, Shortness of Breath, Hemoptysis Cardiac (ROS): No: Chest Pain, Lightheadedness, Palpitations, Syncope ABD/GI: No: Constipated, Diarrhea, Nausea, Vomiting, Abdominal cramping : No: Burning, Dysuria, Hematuria Musculoskeletal: No: Back Pain, Joint Pain, Muscle Pain, Muscle Weakness Neurological: No: Headache, Numbness, Tingling, Tremors *Physical Exam - Vital Signs Last Vital Signs Temp Pulse Resp BP Pulse Ox 99.1 F 86 18 142/90 99 12/31/17 15:19 12/31/17 15:19 12/31/17 15:19 12/31/17 15:19 12/31/17 17:06 - Physical Exam Comments: 01/01/18 00:47 pt sitting in chair, looked frustrated General Appearance: Yes: Appropriately Dressed, Obese. No: Apparent Distress HEENT: positive: EOMI, PÉREZ, Normal ENT Inspection Neck: positive: Trachea midline, Supple. negative: Carotid bruit, Lymphadenopathy (R), Lymphadenopathy (L) Respiratory/Chest: positive: Lungs Clear, Normal Breath Sounds. negative: Crackles, Rales, Rhonchi, Stridor, Wheezing Cardiovascular: positive: Regular Rhythm, Regular Rate, S1, S2. negative: Edema , JVD, Murmur Vascular Pulses: Carotid (R): 2+, Carotid (L): 2+, Dorsalis-Pedis (R): 2+, Doralis-Pedis (L): 2+ Gastrointestinal/Abdominal: positive: Normal Bowel Sounds, Soft. negative: Guarding, Rebound, Tenderness Musculoskeletal: negative: CVA Tenderness Extremity: positive: Normal Capillary Refill. negative: Pedal Edema, Swelling, Calf Tenderness Integumentary: positive: Normal Color, Dry, Warm Neurologic: positive: senior data modeler II-XII NML intact, Fully Oriented, Alert, Normal Mood/ Affect, Normal Response, Motor Strength 07/29 ED Treatment Course - LABORATORY CBC & Chemistry Diagram: 12/31/17 16:50 12/31/17 16:50 - ADDITIONAL ORDERS Additional order review: 12/31/17 16:50 RBC 4.39 MCV 91.2 MCHC 32.1 RDW 16.0 H MPV 9.2 Neutrophils % 59.0 Lymphocytes % 32.2 Monocytes % 5.7 Eosinophils % 2.1 D Basophils % 1.0 Medical Decision Making - Medical Decision Making 01/01/18 00:48 57yo f with pmh of htn presenting with elevated bp. Vitals: 142/90, wnl PE: benign Will order ekg, cxr and blood work to check for end organ damage. Labs were drawn. awaiting ekg and cxr Pt refused ekg and cxr, wanted to leave. Told patient why refusing treatment could be detrimental. Pt understood and signed out AMA. *DC/Admit/Observation/Transfer Diagnosis at time of Disposition: High blood pressure Qualifiers: Hypertension type: unspecified Qualified Code(s): I10 - Essential (primary) hypertension - Discharge Dispostion Disposition: AGAINST MEDICAL ADVICE Condition at time of disposition: Good Decision to Admit order: No - Referrals Referrals: Juanjose Blandon [Primary Care Provider] - - Patient Instructions Printed Discharge Instructions: DI for High Blood Pressure, How to Monitor Your Blood Pressure at Home Additional Instructions: You were seen here today for blood pressure. We did blood work and wanted to get an EKG and xray but you did not want any further evaluation. Please see your primary care doctor for evaluation and treatment of hypertension. Please come back to the ED if: your blood pressure is 180/120 or higher, you develop chest pain, shortness of breath, headaches or if any new concerning symptom develops. Thank you - Post Discharge Activity
[2017-12-31 17:38] LABS: ALBUMIN 3.4 g/dl (3.4-5.0); ALK PHOS 123 U/L (45-117); ANION GAP 7 MMOL/L (8-16); BILIRUBIN,TOTAL 0.2 mg/dL (0.2-1); BLOOD UREA NITROGEN 12 mg/dL (7-18); CALCIUM 9.6 mg/dL (8.5-10.1); CHLORIDE 111 mmol/L (98-107); CO2 28 mmol/L (21-32); CREATININE 0.8 mg/dL (0.55-1.3); GLUCOSE,RANDOM 90 mg/dL (74-106); PHOSPHOROUS 3.2 mg/dL (2.5-4.9); POTASSIUM 3.9 mmol/L (3.5-5.1); SGOT/AST 18 U/L (15-37); SGPT/ALT 36 U/L (13-61); SODIUM 145 mmol/L (136-145); TOT PROT 7.3 g/dl (6.4-8.2)
== END 2017-12-31 17:25 | disposition left against medical advice (07) ==
LOC: JER 15:14
DX: I10 Essential (primary) hypertension (principal); E11.9 Type 2 diabetes mellitus without complications; Z79.84 Long term (current) use of oral hypoglycemic drugs; E78.00 Pure hypercholesterolemia, unspecified
CPT/HCPCS: 36415; 80053; 83735; 84100; 84484; 85025; 99282-25

== ENCOUNTER 2018-05-29 14:23 | Emergency (ER) | payer OTHER ==
[2018-05-29 14:42] VITALS: BP 113/74; PULSE 92; TEMP 98.3; BMI 36.4
--- NOTE | 2018-05-29 14:51 | PDOC ---
Rapid Medical Evaluation Chief Complaint: Weakness Time Seen by Provider: 05/29/18 14:49 Medical Evaluation: Allergies Allergy/AdvReac Type Severity Reaction Status Date / Time No Known Drug Allergies Allergy Verified 12/31/17 15:21 Vital Signs Temp Pulse Resp BP Pulse Ox 98.3 F 92 H 18 113/74 99 05/29/18 14:39 05/29/18 14:39 05/29/18 14:39 05/29/18 14:39 05/29/18 14:39 05/29/18 14:49 I have performed a brief in-person evaluation of this patient. The patient presents with a chief complaint of: h/o Diabetes on metformin present with complains of feeling of low blood sugar . Denies any other symptoms Pertinent physical exam findings: heart RRR. Lungs CTAB. no acute distress and ambulating well I have ordered the following: CBC, CMP, blood glucose The patient will proceed to the ED for further evaluation Discharge Disposition - Diagnosis Malaise - Discharge Dispostion Condition at time of disposition: Stable - Referrals - Patient Instructions - Post Discharge Activity
[2018-05-29 14:56] LABS: BASO % 0.8 % (0-2.0); EOS % 1.7 % (0-4.5); HEMATOCRIT 42.5 % (32.4-45.2); HEMOGLOBIN 14.3 GM/dL (10.7-15.3); LYMPH % 29.4 % (8-40); MCH 29.9 pg (25.7-33.7); MCHC 33.6 g/dl (32.0-36.0); MEAN CELL VOLUME 89.2 fl (80-96); MEAN PLT VOLUME 9.1 fl (7.5-11.1); MONO % 5.3 % (3.8-10.2); NEUT % 62.8 % (42.8-82.8); PLATELET COUNT 247 K/MM3 (134-434); RBC 4.76 M/mm3 (3.60-5.2); RDW 15.9 % (11.6-15.6); WHITE BLOOD COUNT 10.5 K/mm3 (4.0-10.0)
[2018-05-29 15:23] LABS: ALBUMIN 3.4 g/dl (3.4-5.0); ALK PHOS 133 U/L (45-117); ANION GAP 7 MMOL/L (8-16); BILIRUBIN,TOTAL 0.3 mg/dL (0.2-1); BLOOD UREA NITROGEN 15 mg/dL (7-18); CALCIUM 9.5 mg/dL (8.5-10.1); CHLORIDE 105 mmol/L (98-107); CO2 29 mmol/L (21-32); CREATININE 0.9 mg/dL (0.55-1.3); GLUCOSE,RANDOM 96 mg/dL (74-106); SGOT/AST 18 U/L (15-37); SGPT/ALT 38 U/L (13-61); SODIUM 140 mmol/L (136-145); TOT PROT 7.6 g/dl (6.4-8.2)
--- NOTE | 2018-05-29 15:54 | PDOC ---
History of Present Illness - General Chief Complaint: Weakness Stated Complaint: WEAKNESS Time Seen by Provider: 05/29/18 14:49 History Source: Patient Exam Limitations: No Limitations - History of Present Illness Initial Comments: 05/29/18 15:50 Pt is a 57yo F with of HTN, DM presenting to ED for weakness and diarrhea. Pt states that she gets sthe diarrhea after taking metformin without much food. Diarrhea is described as loose, going about 3-5 times today. She states that she did not have much to eat. Also asking for Percocet due to chronic pain. Last used Percocet 1 month ago. She denies fever, chills, urinary symptoms, chest pain, syncope, lightheadedness, abdominal pain, n/v, numbness/tingling, inability to ambulate, sick contacts, eating uncooked foods, recent abx use. PMD: Barber PMH: see hpi PSH: Meds: losartan, metformin Allergies: nkda Social: denies Past History - Past Medical History Allergies/Adverse Reactions: Allergies Allergy/AdvReac Type Severity Reaction Status Date / Time No Known Drug Allergies Allergy Verified 12/31/17 15:21 Home Medications: Ambulatory Orders Albuterol Sulfate Inhaler - [Ventolin Hfa Inhaler -] 2 inh PO Q6H 01/10/17 Budesonide/Formeterol Fumarate [SYMBICORT 160/4.5mcg -] 1 inh PO DAILY 01/10/17 Liraglutide [Victoza -] 1.8 mg SQ DAILY@0700 01/10/17 metFORMIN HCL [Glucophage -] 500 mg PO BID 01/10/17 Losartan/Hydrochlorothiazide [Hyzaar 50-12.5 Tablet] 1 each PO DAILY #30 tablet 08/26/17 Lactobacillus 3/Fos/Pantethine [Probiotic & Acidophilus Cap] 1 each PO DAILY #7 capsule 05/29/18 Anemia: No Asthma: No Cancer: No Cardiac Disorders: No CVA: No COPD: No CHF: No DVT: No Dementia: No Diabetes: Yes Dialysis: No GI Disorders: Yes (acid reflux) Disorders: No HTN: Yes Hypercholesterolemia: No Kidney Stones: No Liver Disease: No Psychiatric Problems: No Seizures: No Thyroid Disease: No Lung CA: No - Surgical History Appendectomy: Yes Orthopedic Surgery: Yes (ankle sx with hardware) - Suicide/Smoking/Psychosocial Hx Smoking History: Current every day smoker Have you smoked in the past 12 months: Yes Number of Cigarettes Smoked Daily: 2 Information on smoking cessation initiated: No 'Breaking Loose' booklet given: 03/08/12 Hx Alcohol Use: No Drug/Substance Use Hx: No Substance Use Type: Alcohol Hx Substance Use Treatment: (pcp 03/07/12) Review of Systems - Review of Systems Constitutional: Yes: Weakness. No: Chills, Fever HEENTM: No: Symptoms Reported Respiratory: No: Symptoms reported Cardiac (ROS): No: Symptoms Reported ABD/GI: Yes: Diarrhea : No: Symptoms Reported Musculoskeletal: No: Symptoms Reported Integumentary: No: Symptoms Reported Neurological: No: Symptoms reported *Physical Exam - Vital Signs Last Vital Signs Temp Pulse Resp BP Pulse Ox 98.3 F 92 H 18 113/74 99 05/29/18 14:39 05/29/18 14:39 05/29/18 14:39 05/29/18 14:39 05/29/18 14:39 - Physical Exam General Appearance: Yes: Appropriately Dressed, Obese, Other (lying in stretcher ). No: Apparent Distress HEENT: positive: EOMI, PÉREZ Neck: positive: Trachea midline, Supple Respiratory/Chest: positive: Lungs Clear, Normal Breath Sounds Cardiovascular: positive: Regular Rhythm, Regular Rate, S1, S2. negative: Edema , JVD, Murmur Vascular Pulses: Carotid (R): 2+, Carotid (L): 2+, Dorsalis-Pedis (R): 2+, Doralis-Pedis (L): 2+ Gastrointestinal/Abdominal: positive: Normal Bowel Sounds, Soft. negative: Distended, Guarding, Rebound, Tenderness, Hernia Musculoskeletal: negative: CVA Tenderness Extremity: positive: Normal Capillary Refill. negative: Pedal Edema, Swelling Integumentary: positive: Normal Color, Dry, Warm Neurologic: positive: digital coordinator II-XII NML intact, Fully Oriented, Alert, Normal Mood/ Affect, Normal Response, Motor Strength 5/5 Moderate Sedation - Procedure Monitoring Vital Signs: Procedure Monitoring Vital Signs Temperature 98.3 F 05/29/18 14:39 Pulse Rate 92 H 05/29/18 14:39 Respiratory Rate 18 05/29/18 14:39 Blood Pressure 113/74 05/29/18 14:39 O2 Sat by Pulse Oximetry (%) 99 05/29/18 14:39 ED Treatment Course - LABORATORY CBC & Chemistry Diagram: 05/29/18 14:49 05/29/18 14:49 - ADDITIONAL ORDERS Additional order review: Laboratory Results 05/29/18 14:49 Sodium 140 Potassium 4.0 Chloride 105 Carbon Dioxide 29 Anion Gap 7 L BUN 15 Creatinine 0.9 Creat Clearance w eGFR > 60 Random Glucose 96 Calcium 9.5 Total Bilirubin 0.3 AST 18 ALT 38 Alkaline Phosphatase 133 H Total Protein 7.6 Albumin 3.4 05/29/18 14:49 RBC 4.76 MCV 89.2 MCHC 33.6 RDW 15.9 H MPV 9.1 Neutrophils % 62.8 Lymphocytes % 29.4 Monocytes % 5.3 Eosinophils % 1.7 Basophils % 0.8 Medical Decision Making - Medical Decision Making 05/30/18 22:08 Pt is a 57yo F with of HTN, DM presenting to ED for weakness and diarrhea. Pt states that she gets sthe diarrhea after taking metformin without much food. Diarrhea is described as loose, going about 3-5 times today. She states that she did not have much to eat. Also asking for Percocet due to chronic pain. Last used Percocet 1 month ago. She denies fever, chills, urinary symptoms, chest pain, syncope, lightheadedness, abdominal pain, n/v, numbness/tingling, inability to ambulate. No recent abx use Vitals: wnl PE: normal Labs ordered by RME. Do not think diarrhea is infectious, due to opiate withdrawal, due to abx use. Labs wnl. BG 96. Pt asking for food, was given lunch bag. Ambulated to vending machine Could be due to medication reaction. Pt is hemodynamically stable, normal labs. Will DC home with rx for probiotics. *DC/Admit/Observation/Transfer Diagnosis at time of Disposition: Weak - Discharge Dispostion Disposition: HOME Condition at time of disposition: Good Decision to Admit order: No - Prescriptions Prescriptions: Lactobacillus 3/Fos/Pantethine [Probiotic & Acidophilus Cap] 1 each PO DAILY #7 capsule - Referrals Referrals: Juanjose Blandon [Primary Care Provider] - - Patient Instructions Printed Discharge Instructions: DI for Hypoglycemia Additional Instructions: You were seen in the emergency room today for feeling weak and having diarrhea. Your blood sugar level was 96. Please make sure you are eating healthy meals daily. You can take the metformin with food if necessary. I highly suggest you make an appointment with Dr. Blandon this week so that you can have better blood sugar and pain control. A prescription was sent to your pharmacy for a probiotic. Take one capsule daily. If this is not covered by your insurance, it can be found over the counter. Come back to the emergency room if you pass out, there is blood in the stool, you have chest pain, you feel short of breath, you have abdominal pain or if any new concerning symptom develops. Thank you - Post Discharge Activity Forms/Work/School Notes: Back to Work
--- NOTE | 2018-05-29 17:36 | PDOC ---
Attending Attestation - Resident Resident Name: Fang Sung - ED Attending Attestation I have performed the following: I have examined & evaluated the patient, The case was reviewed & discussed with the resident, I agree w/resident's findings & plan, Exceptions are as noted - HPI HPI: 05/29/18 17:35 Reviewed Residents HPI - Physicial Exam PE: 05/29/18 17:35 Reviewed Residents PE - Medical Decision Making 05/29/18 17:35 Well-appearing no apparent distress mild diarrhea patient seen eating comfortable in the emergency Department no abdominal pain on examination labs within normal limits Likely viral versus medication induced diarrhea low suspicion for C. difficile for acute infectious process given normal labs and stable vital signs Findings, need for follow-up and strict return instructions discussed with patient. <Dillon Her - Last Filed: 05/29/18 17:35> - HPI HPI: 05/29/18 17:39 The patient is a 57 year old female with a significant PMH of hypertension and diabetes who presents to the emergency department with some generalized weakness for 1 day. The patient reports some associated episodes of diarrhea ( 5 episodes) with her weakness. She states that she usually experiences diarrhea like this when she takes her metformin without eating. The patient states that she was on a z pack 2 weeks ago. She states that her last opioid use was about 1 month ago. She denies any other symptoms or complaints. - Physicial Exam PE: 05/29/18 17:40 Vitals: Triage vital signs reviewed General Appearance: No acute distress, well nourished, well developed Head: Atraumatic Neck: Supple; No nuchal rigidity Chest Wall: Nontender Cardiac: Regular rate and rhythm, no murmurs, no rubs, no gallops Lungs: Clear to auscultation bilateral, good air movement bilaterally Abdomen: Soft, nondistended, normal bowel sounds, nontender to palpation Extremities: Full range of motion to all extremities, no cyanosis, clubbing, or edema Skin: Warm and dry, no rashes or lesions, no rash, no petechiae Neuro: AOX3; Cranial Nerves 2-12 grossly intact, Strength intact to all extremities, Sensation intact to all extremities, gait normal Psych: Normal mood, normal affect <Lv Guerrero - Last Filed: 05/29/18 17:40> Attestations - Attestations 05/29/18 17:40 Documentation prepared by Lv Guerrero, acting as medical insurance verifier for Dillon Her MD. <Lv Guerrero - Last Filed: 05/29/18 17:40>
== END 2018-05-29 17:19 | disposition home or self-care (01) ==
LOC: JER 14:23
DX: R53.1 Weakness (principal); E11.9 Type 2 diabetes mellitus without complications; Z79.84 Long term (current) use of oral hypoglycemic drugs; I10 Essential (primary) hypertension; K21.9 Gastro-esophageal reflux disease without esophagitis
CPT/HCPCS: 36415; 80053; 85025; 99285-25

== ENCOUNTER 2018-10-23 06:20 | Emergency (ER) | payer OTHER ==
[2018-10-23 06:39] VITALS: TEMP 99.6; BMI 35.9
--- NOTE | 2018-10-23 07:26 | PDOC ---
Attending Attestation - Resident Resident Name: Randell Arteaga - ED Attending Attestation I have performed the following: I have examined & evaluated the patient, The case was reviewed & discussed with the resident, I agree w/resident's findings & plan, Exceptions are as noted - HPI HPI: 10/23/18 07:25 57y F hx of htn, dm presents with complaint of headache that started while sh ewas watching tv around 5 or 6am and got worse. springer is b/l temporal, pt endorses nausea without vomiting, no associated vision changes, numnbess/tingling/ weakness, fever/chills, neck pain, cp, sob. no recent trauma/falls, abd pain. GENERAL: The patient is awake, alert, and fully oriented, Nontoxic - in no acute distress. HEAD: Normocephalic, atraumatic. EYES: extraocular movements intact, sclera anicteric, conjunctiva clear. NECK: Normal range of motion, supple EXTREMITIES: Normal range of motion, no edema. NEUROLOGICAL: No facial assymetry, Normal speech, moving all 4 extermities spontaneously and symmerically PSYCH: Normal mood, normal affect. SKIN: Warm, Dry, normal turgor, suspect tension headache low suspicion sah, will obtain ct head, nv intact acetaminomphen/reglan will reasess - Physicial Exam PE: 10/23/18 09:27 see above - Medical Decision Making 10/23/18 09:[address] head negative will dc with supportive care at home I discussed the physical exam findings, ancillary test results and final diagnoses with the patient. I answered all of the patient's questions. The patient was satisfied with the care received and felt comfortable with the discharge plan and treatment plan. The patient will call their primary care physician within 24 hours to arrange follow-up and will return to the Emergency Department with any new, persistent or worsening symptoms.
--- NOTE | 2018-10-23 07:26 | PDOC ---
History of Present Illness - General Chief Complaint: Headache Stated Complaint: HEADACHE Time Seen by Provider: 10/23/18 07:19 History Source: Patient Exam Limitations: No Limitations - History of Present Illness Initial Comments: 10/23/18 07:24 Patient is a 57F with history of HTN, DM who comes into the ED who is coming in today complaining of a headache that onset two hours prior to presentation to the ED. Patient states she's not sure if the headache onset suddenly, states that she was watching TV when it started. Patient also endorses PCP use, states that she uses this regularly but bought her PCP from a different person today. Denies fevers, chills. Endorses nausea, denies vomiting. Headache is bilateral along temporal regions with radiation to jaw. No changes to her vision. No chest pain, abdominal pain, shortness of breath. Endorses taking valsartan regularly. Denies having DM, prior charts state she has DM. Past History - Past Medical History Allergies/Adverse Reactions: Allergies Allergy/AdvReac Type Severity Reaction Status Date / Time No Known Allergies Allergy Verified 10/23/18 08:11 Home Medications: Ambulatory Orders Albuterol Sulfate Inhaler - [Ventolin Hfa Inhaler -] 2 inh PO Q6H 01/10/17 Budesonide/Formeterol Fumarate [SYMBICORT 160/4.5mcg -] 1 inh PO DAILY 01/10/17 Liraglutide [Victoza -] 1.8 mg SQ DAILY@0700 01/10/17 metFORMIN HCL [Glucophage -] 500 mg PO BID 01/10/17 Losartan/Hydrochlorothiazide [Hyzaar 50-12.5 Tablet] 1 each PO DAILY #30 tablet 08/26/17 Lactobacillus 3/Fos/Pantethine [Probiotic & Acidophilus Cap] 1 each PO DAILY #7 capsule 05/29/18 Anemia: No Asthma: No Cancer: No Cardiac Disorders: No CVA: No COPD: No CHF: No DVT: No Dementia: No Diabetes: Yes Dialysis: No GI Disorders: Yes (acid reflux) Disorders: No HTN: Yes Hypercholesterolemia: No Kidney Stones: No Liver Disease: No Psychiatric Problems: No Seizures: No Thyroid Disease: No Lung CA: No - Surgical History Appendectomy: Yes Orthopedic Surgery: Yes (ankle sx with hardware) - Suicide/Smoking/Psychosocial Hx Smoking History: Current every day smoker Have you smoked in the past 12 months: Yes Number of Cigarettes Smoked Daily: 5 Information on smoking cessation initiated: No 'Breaking Loose' booklet given: 03/08/12 Hx Alcohol Use: No Drug/Substance Use Hx: No Substance Use Type: Alcohol Hx Substance Use Treatment: (pcp 03/07/12) Review of Systems - Review of Systems Able to Perform ROS?: Yes Comments:: 10/23/18 08:03 GENERAL/CONSTITUTIONAL: No fever or chills. No weakness. HEAD, EYES, EARS, NOSE AND THROAT: No change in vision. No sore throat. CARDIOVASCULAR: No chest pain or shortness of breath RESPIRATORY: No cough, wheezing, or hemoptysis. GASTROINTESTINAL: +nausea, no vomiting, diarrhea or constipation. GENITOURINARY: No dysuria, frequency, or change in urination. MUSCULOSKELETAL: No joint or muscle swelling or pain. No neck or back pain. SKIN: No rash NEUROLOGIC: +headache, no vertigo, loss of consciousness, or change in strength/ sensation. ENDOCRINE: No increased thirst. No abnormal weight change HEMATOLOGIC/LYMPHATIC: No anemia, easy bleeding, or history of blood clots. ALLERGIC/IMMUNOLOGIC: No hives or skin allergy. *Physical Exam - Vital Signs Last Vital Signs Temp Pulse Resp BP Pulse Ox 99.6 F 96 H 18 182/105 H 97 10/23/18 06:30 10/23/18 06:30 10/23/18 06:30 10/23/18 06:30 10/23/18 06:30 - Physical Exam Comments: 10/23/18 08:05 GENERAL: Awake, alert, and fully oriented, in no acute distress HEAD: No signs of trauma, normocephalic, atraumatic EYES: PERRLA, EOMI, sclera anicteric, conjunctiva clear ENT: Auricles normal inspection, hearing grossly normal, nares patent, oropharynx clear without exudates. Moist mucosa. No pain to palpation along temples NECK: Normal ROM, supple, no lymphadenopathy, JVD, or masses LUNGS: No distress, speaks full sentences, clear to auscultation bilaterally HEART: Regular rate and rhythm, normal S1 and S2, no murmurs, rubs or gallops, peripheral pulses normal and equal bilaterally. ABDOMEN: Soft, nontender, normoactive bowel sounds. No guarding, no rebound. No masses EXTREMITIES: Normal inspection, Normal range of motion, no edema. No clubbing or cyanosis. NEUROLOGICAL: Cranial nerves II through XII grossly intact. Normal speech, normal gait, no focal sensorimotor deficits SKIN: Warm, Dry, normal turgor, no rashes or lesions noted. ED Treatment Course - LABORATORY CBC & Chemistry Diagram: 10/23/18 07:58 10/23/18 07:58 Medical Decision Making - Medical Decision Making 10/23/18 08:10 Patient is a 57F with history of HTN, DM here today complaining of a headache. Vitals notable for HTN. Patient is moderately agitated, gripping head, throwing her belongings around room. DDx includes, but is not limited to: tension headache, SAH, migraine, mass. Normal neuro exam, low risk for SAH but will do head CT to rule out. Will treat headache with reglan and tylenol. Will give ativan for agitation because of pcp use. Will re-evaluate, likely discharge. 10/23/18 09:15 CBC, CMP normal. CT head negative. Headache improved, will give ibuprofen PO. BP 166/104. Patient has PCP, will follow up. Given return precautions and discharge instructions. *DC/Admit/Observation/Transfer Diagnosis at time of Disposition: Headache - Discharge Dispostion Disposition: HOME Condition at time of disposition: Good Decision to Admit order: No - Referrals - Patient Instructions Printed Discharge Instructions: DI for Headache Additional Instructions: You were seen today in the ED for a headache. Please follow up with your primary care provider in the next week. Please return if you have any new, worsening or concerning symptoms, especially increasing pain, fever, and weakness in an arm, leg or face. - Post Discharge Activity
[2018-10-23] MEDS ORDERED: SODIUM CHLORIDE 1,000 ML IV STA (07:36)
[2018-10-23] MEDS ORDERED: LORazepam 2 MG/ML SDV VIAL IVPUSH ONE (07:37)
[2018-10-23] MEDS ORDERED: ACETAMINOPHEN 1000 MG/100 ML VIAL (NON FORMULARY) IVPB ONE (07:37)
[2018-10-23] MEDS ORDERED: METOCLOPRAMIDE HCL INJECTION 10 MG/2 ML VIAL IVPUSH ONE (07:37)
[2018-10-23] MEDS ORDERED: LORazepam 2 MG/ML SDV VIAL ONE (07:42)
[2018-10-23 08:28] LABS: INR 1.02 (0.83-1.09)
[2018-10-23 08:40] LABS: BASO % 0.6 % (0-2.0); HEMATOCRIT 42.7 % (32.4-45.2); HEMOGLOBIN 13.9 GM/dL (10.7-15.3); LYMPH % 27.6 % (8-40); MCH 29.2 pg (25.7-33.7); MCHC 32.6 g/dl (32.0-36.0); MEAN CELL VOLUME 89.4 fl (80-96); MEAN PLT VOLUME 9.4 fl (7.5-11.1); NEUT % 64.8 % (42.8-82.8); PLATELET COUNT 315 K/MM3 (134-434); RBC 4.77 M/mm3 (3.60-5.2); RDW 16.1 % (11.6-15.6)
[2018-10-23 08:41] LABS: ALBUMIN 3.7 g/dl (3.4-5.0); BILIRUBIN,TOTAL 0.4 mg/dL (0.2-1); BLOOD UREA NITROGEN 9.4 mg/dL (7-18); CALCIUM 9.3 mg/dL (8.5-10.1); CREATININE 0.8 mg/dL (0.55-1.3); TOT PROT 7.8 g/dl (6.4-8.2)
[2018-10-23 08:42] LABS: MAGNESIUM 2.3 mg/dL (1.8-2.4); POTASSIUM 4.3 mmol/L (3.5-5.1)
[2018-10-23] MEDS ORDERED: IBUPROFEN 600 MG TABLET (FP) PO ONE ×2 (09:04→09:34)
[2018-10-23 09:46] VITALS: BP 158/101; PULSE 84
== END 2018-10-23 09:50 | disposition home or self-care (01) ==
LOC: JER 06:20
PROC: 3E0337Z Introduction of Electrolytic and Water Balance Substance into Peripheral Vein, Percutaneous Approach (ICD-10-PCS; principal; 2018-10-23)
PROC: 3E033GC Introduction of Other Therapeutic Substance into Peripheral Vein, Percutaneous Approach (ICD-10-PCS; 2018-10-23)
PROC: 3E033NZ Introduction of Analgesics, Hypnotics, Sedatives into Peripheral Vein, Percutaneous Approach (ICD-10-PCS; 2018-10-23)
PROC: 3E033NZ Introduction of Analgesics, Hypnotics, Sedatives into Peripheral Vein, Percutaneous Approach (ICD-10-PCS; 2018-10-23)
DX: R51 Headache (principal); F16.10 Hallucinogen abuse, uncomplicated; I10 Essential (primary) hypertension; E11.9 Type 2 diabetes mellitus without complications
CPT/HCPCS: 36415; 70450-TC; 80053; 83735; 85025; 85610; 96361; 96374; 96375; 99282-25; J0131; J7030

== ENCOUNTER 2019-03-18 13:17 | Emergency (ER) | payer OTHER ==
--- NOTE | 2019-03-18 13:26 | PDOC ---
Rapid Medical Evaluation Time Seen by Provider: 03/18/19 13:24 Medical Evaluation: Allergies Allergy/AdvReac Type Severity Reaction Status Date / Time No Known Allergies Allergy Verified 03/18/19 13:24 03/18/19 13:26 I performed a brief in-person evaluation of this patient. 58-year-old female with NIDDM and HTN presenting with high BP readings at home ( does not recall number) and feeling "stressed out" about a family situation. Endorses headache, chest pain. Reports medication adherence. Pertinent physical exam findings: Alert, oriented, no distress - but nodding off during exam. Left arm weakness - patient states is baseline after shoulder injury. Unsteady gait - states is baseline after ankle injury. RRR, S1/S2 Clear lungs. BP 123/92. I have ordered the following: EKG CXR Cardiac labs Patient will proceed to: Main ED for further evaluation. Discharge Disposition - Diagnosis Chest pain - Referrals - Patient Instructions - Post Discharge Activity
[2019-03-18 13:32] VITALS: BMI 38.6
[2019-03-18 14:58] LABS: BASO % 0.8 % (0-2.0); EOS % 1.1 % (0-4.5); HEMATOCRIT 42.9 % (32.4-45.2); HEMOGLOBIN 13.6 GM/dL (10.7-15.3); MCH 28.7 pg (25.7-33.7); MCHC 31.7 g/dl (32.0-36.0); MEAN CELL VOLUME 90.3 fl (80-96); MEAN PLT VOLUME 9.7 fl (7.5-11.1); MONO % 7.1 % (3.8-10.2); PLATELET COUNT 257 K/MM3 (134-434); RBC 4.75 M/mm3 (3.60-5.2); WHITE BLOOD COUNT 9.6 K/mm3 (4.0-10.0)
--- NOTE | 2019-03-18 14:59 | PDOC ---
History of Present Illness - General Chief Complaint: Chest Pain Stated Complaint: NUMBNESS Time Seen by Provider: 03/18/19 13:24 - History of Present Illness Initial Comments: 58F PMH HTN, NIDDM, ILD c/o high BP this AM w/ headache and lightheadedness. States she knows her BP was high because of her headache but no measurement. Headache is her normal gradual onset headache, left sided. Took two of her antihypertensives. Asymptomatic at time of exam. Endorses srivastava (chronic) and productive cough (chronic). Denies cp/sob/palpitations/f/c/n/v/d/dys/freq/ abdpain. Allergy to Anesthetics PCP - Dr. Blandon Current smoker Past History - Past Medical History Allergies/Adverse Reactions: Allergies Allergy/AdvReac Type Severity Reaction Status Date / Time No Known Allergies Allergy Verified 03/18/19 13:24 Home Medications: Ambulatory Orders Albuterol Sulfate Inhaler - [Ventolin Hfa Inhaler -] 2 inh PO Q6H 01/10/17 Budesonide/Formeterol Fumarate [SYMBICORT 160/4.5mcg -] 1 inh PO DAILY 01/10/17 Liraglutide [Victoza -] 1.8 mg SQ DAILY@0700 01/10/17 metFORMIN HCL [Glucophage -] 500 mg PO BID 01/10/17 Losartan/Hydrochlorothiazide [Hyzaar 50-12.5 Tablet] 1 each PO DAILY #30 tablet 08/26/17 Lactobacillus 3/Fos/Pantethine [Probiotic & Acidophilus Cap] 1 each PO DAILY #7 capsule 05/29/18 Anemia: No Asthma: No Cancer: No Cardiac Disorders: No CVA: No COPD: No CHF: No DVT: No Dementia: No Diabetes: Yes Dialysis: No GI Disorders: Yes (acid reflux) Disorders: No HTN: Yes Hypercholesterolemia: No Kidney Stones: No Liver Disease: No Psychiatric Problems: No Seizures: No Thyroid Disease: No Lung CA: No - Surgical History Appendectomy: Yes Orthopedic Surgery: Yes (ankle sx with hardware) - Psycho Social/Smoking Cessation Hx Smoking History: Current some day smoker Have you smoked in the past 12 months: Yes Number of Cigarettes Smoked Daily: 2 Information on smoking cessation initiated: Yes 'Breaking Loose' booklet given: 03/08/12 Hx Alcohol Use: No Drug/Substance Use Hx: No Substance Use Type: Alcohol Hx Substance Use Treatment: (pcp 03/07/12) Review of Systems - Review of Systems Comments:: CONSTITUTIONAL: Denies F / C HEENT: Endorses since resolved headache and lightheadedness. Denies changes in vision / hearing, diplopia, blurry vision, sore throat, rhinorrhea RESP: Endorses chronic cough and SRIVASTAVA. CARD: Denies chest pain, palpitations GI: Denies N / V / D, abdominal pain, bloody stool, inability to tolerate PO : Denies dysuria, hematuria, frequency SKIN: Denies rashes NEURO: Denies numbness, tingling, weakness MSK: Denies back pain *Physical Exam - Vital Signs Last Vital Signs Temp Pulse Resp BP Pulse Ox 98.2 F 83 18 123/92 98 03/18/19 13:25 03/18/19 13:25 03/18/19 13:25 03/18/19 13:25 03/18/19 13:25 - Physical Exam GEN: NAD, comfortable, disheveled. AAOx3 HEENT: NC/AT, CN II-XII intact EOMI, PERRLA. No facial asymmetry. Normal voice. Supple neck w/ FROM. CV: S1/S2, RRR, no m/r/g LUNG: CTAB, no wheezes, crackles, rales, rhonchi. GI: soft, ndnt, +BS, no guarding, no rebound. EXTREMITIES: No obvious deformities of all extremities. SKIN: warm, dry, normal turgor PSYCH: speaking full sentences, fluent language. NEURO: Moving all extremities well. Ambulates w/ normal gait. 5/5 UE and LE strength. Symmetric sensation. ED Treatment Course - LABORATORY CBC & Chemistry Diagram: 03/18/19 14:35 03/18/19 14:35 Medical Decision Making - Medical Decision Making 03/18/19 14:55 58F c/o headache and high BP that has since resolved since she took 2 of her antihypertensives. Normal exam. [facility] labs, img, ekg will contact Dr. Blandon 03/18/19 15:26 labs reviewed D/W MAT MACHINE TENDER Lyndsey Recinos for Dr. Blandon - pt very noncompliant, is seeking a specific anti-hypertensive (Adarbi?) that is not covered, was seen by MAT MACHINE TENDER very recently and switched to losartan, agrees w/ plan to dc w/ PCP f/u; MAT MACHINE TENDER requesting fax of results. DC home as above Discharge - Discharge Information Problems reviewed: Yes Clinical Impression/Diagnosis: Blood pressure check Condition: Stable Disposition: HOME - Admission No - Follow up/Referral Referrals: Juanjose Blandon [Non Staff, Medical] - - Patient Discharge Instructions Additional Instructions: Please follow up with Dr. Blandon's office in the next 3-5 days regarding this visit. 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 Lyndsey Recinos prescribed to you and take it as prescribed. Return to the nearest Emergency Department if you experience worsening or concerning symptoms. - Post Discharge Activity
[2019-03-18 15:11] LABS: INR 0.98 (0.83-1.09); PROTHROMBIN TIME (PATIENT) 11.6 SEC (9.7-13.0)
[2019-03-18 15:34] LABS: ALBUMIN 3.5 g/dl (3.4-5.0); BILIRUBIN,TOTAL 0.3 mg/dL (0.2-1); BLOOD UREA NITROGEN 19.6 mg/dL (7-18); CALCIUM 9.7 mg/dL (8.5-10.1); CREATININE 1.1 mg/dL (0.55-1.3); POTASSIUM 4.1 mmol/L (3.5-5.1); TOT PROT 7.3 g/dl (6.4-8.2)
--- NOTE | 2019-03-18 15:37 | PDOC ---
Attending Attestation - Resident Resident Name: Addi iSlva - ED Attending Attestation I have performed the following: I have examined & evaluated the patient, The case was reviewed & discussed with the resident, I agree w/resident's findings & plan - HPI HPI: 03/18/19 15:37 58-year-old female with NIDDM and HTN, ILD presenting with high BP readings at home (does not recall number) and feeling "stressed out" about a family situation. Endorses headache, chest pain. Reports medication adherence. pt states she had adjustments to her antihypertensive regimen 2 weeks ago with [facility] with Dr Blandon left sided gradual SALAS since this morning, a/w lightheadedness. no cp/sob/palpitations, no focal weakness/paresthesias. + lucas (chronic) and productive cough (chronic) current smoker will contact Dr. Blandon 03/18/19 17:18 - Physicial Exam PE: 03/18/19 15:36 Agree with the resident's HPI and PE as documented in the electronic medical record. NAD, well appearing, EOMI, PERRL, nl conjunctiva, anicteric; neck supple. lungs clear, RRR, abdomen soft nontender. no rebound, guarding. Back nontender. HANEY x4, no focal neuro deficits. No peripheral edema. normal color for ethnicity , WWP. - Medical Decision Making 03/18/19 15:36 Vital Signs Temp Pulse Resp BP Pulse Ox 98.2 F 83 18 123/92 98 03/18/19 13:25 03/18/19 13:25 03/18/19 13:25 03/18/19 13:25 03/18/19 13:25 ddx, htn urgency/emergency, end organ damage, ACS, arrhythmia, anemia, infection Laboratory results including electrolytes, CBC within normal limits, negative troponin and BNP so unlikely to be underlying cardiomyopathy or ACS. No evidence of anemia, no signs of infection. HD appropriate here PMD call back Dr Blandon, regarding fluctuant BP. noncompliance with her hctz-losartan 03/18/19 15:26 D/W [facility] Lyndsey Recinos for Dr. Blandon - pt very noncompliant, is seeking a specific anti-hypertensive (Adarbi?) that is not covered, was seen by [facility] very recently and switched to losartan, agrees w/ plan to dc w/ PCP f/u; [facility] requesting fax of results. compliance with food and quitting smoking reviewed. DC stable condition, return precautions, f/u Dr Blandon Heart Score/ECG Review #1 ECG reviewed & interpreted by me at: 13:40 General ECG Interpretation: Sinus Rhythm, Normal Rate, Normal Intervals 03/18/19 15:37 EKG normal sinus rhythm 85 bpm, no interval abnormalities, narrow QRS, ST and T wave segments and morphology normal.
[2019-03-18 17:33] VITALS: BP 94/65; PULSE 95; TEMP 98.7
--- NOTE | 2019-03-19 12:12 | EKG ---
Test Reason : Blood Pressure : / mmHG Vent. Rate : 085 BPM Atrial Rate : 085 BPM P-R Int : 158 ms QRS Dur : 084 ms QT Int : 370 ms P-R-T Axes : 056 -32 027 degrees QTc Int : 440 ms NORMAL SINUS RHYTHM LEFT AXIS DEVIATION MODERATE VOLTAGE CRITERIA FOR LVH, MAY BE NORMAL VARIANT CANNOT RULE OUT SEPTAL INFARCT , AGE UNDETERMINED ABNORMAL ECG Confirmed by MD Jamia, Himanshu ([id number]) on 03/19/2019 12:12:10 PM Referred By: Confirmed By:Himanshu Blandon MD
== END 2019-03-18 17:57 | disposition home or self-care (01) ==
LOC: JER 13:17
DX: I10 Essential (primary) hypertension (principal); E11.9 Type 2 diabetes mellitus without complications; Z79.84 Long term (current) use of oral hypoglycemic drugs; K21.9 Gastro-esophageal reflux disease without esophagitis; F17.210 Nicotine dependence, cigarettes, uncomplicated; R29.898 Other symptoms and signs involving the musculoskeletal system; R26.81 Unsteadiness on feet; R47.1 Dysarthria and anarthria
CPT/HCPCS: 36415; 71045-TC-FY; 80053; 82550; 82962; 83880; 84484; 85025; 85610; 93005; 93010; 99282-25

== ENCOUNTER 2019-06-10 02:00 | Emergency (ER) | payer OTHER ==
[2019-06-10 02:07] VITALS: BP 136/86; PULSE 102; TEMP 98.1; BMI 38.2
--- NOTE | 2019-06-10 02:21 | PDOC ---
History of Present Illness - General History Source: Patient Exam Limitations: No Limitations - History of Present Illness Initial Comments: Pt is a 58 yo F, with PMH of asthma, HTN, and NIDDM, who is presenting with complaints of dry cough and SOB x2 weeks. Pt states she was hospitalized about 2 weeks ago for her asthma, but was not discharged with any abx or steroids. Pt states she is compliant with her breathing treatments at home, but cannot tell m e what they are. Pt also endorses lower back pain from coughing. Pt denies any fevers/chills, headache, vision changes, syncope, chest pain, palpitations, nausea/vomiting, abdominal pain, urinary symptoms, diarrhea/constipation, or leg swelling. Allergies: NKDA PCP: Dr. Blandon Social: Pt denies any cigarette, alcohol, or drug use. Pt states she stopped smoking. Pt denies any recent travel or sick contacts. Surgical: no relevant history. Family: no relevant history. 06/10/19 02:45 06/10/19 02:47 <Yolande García - Last Filed: 06/10/19 03:11> <Parul Trejo - Last Filed: 06/10/19 03:43> - General Chief Complaint: Shortness of Breath Stated Complaint: BACK PAIN Time Seen by Provider: 06/10/19 02:19 Attending Attestation - Resident Resident Name: Yolande García - ED Attending Attestation I have performed the following: I have examined & evaluated the patient, The case was reviewed & discussed with the resident, I agree w/resident's findings & plan - HPI HPI: 06/10/19 03:41 Pt comes with cough and bronchitis. She was seen a couple days back at another ER and sent home.SHe is not a smoker, but she smells of cigarettes Pt has no other complaints. - Physicial Exam PE: 06/10/19 03:42 Agree with resident exam Pt appears well SHe has no fever She has wheeze patchy bilat. - Medical Decision Making 06/10/19 03:42 rx with nebs and she appears well. She will be sent home with zpak for atypical pneumonia <Parul Trejo - Last Filed: 06/10/19 03:43> Past History - Travel Traveled outside of the country in the last 30 days: No Close contact w/someone who was outside of country & ill: No - Past Medical History Anemia: No Asthma: Yes Cancer: No Cardiac Disorders: No CVA: No COPD: No CHF: No DVT: No Dementia: No Diabetes: Yes Dialysis: No GI Disorders: Yes (acid reflux) Disorders: No HTN: Yes Hypercholesterolemia: No Kidney Stones: No Liver Disease: No Psychiatric Problems: No Seizures: No Thyroid Disease: No Lung CA: No - Surgical History Appendectomy: Yes Orthopedic Surgery: Yes (ankle sx with hardware) - Psycho Social/Smoking Cessation Hx Smoking History: Never smoked Have you smoked in the past 12 months: Yes Number of Cigarettes Smoked Daily: 2 'Breaking Loose' booklet given: 03/08/12 Hx Alcohol Use: No Drug/Substance Use Hx: No Substance Use Type: Alcohol Hx Substance Use Treatment: (pcp 03/07/12) <Yolande García - Last Filed: 06/10/19 03:11> <Parul Trejo - Last Filed: 06/10/19 03:43> - Past Medical History Allergies/Adverse Reactions: Allergies Allergy/AdvReac Type Severity Reaction Status Date / Time Anesthetics - Amide Type Allergy Verified 06/10/19 02:07 Home Medications: Ambulatory Orders Albuterol Sulfate Inhaler - [Ventolin Hfa Inhaler -] 2 inh PO Q6H 01/10/17 Budesonide/Formeterol Fumarate [SYMBICORT 160/4.5mcg -] 1 inh PO DAILY 01/10/17 Liraglutide [Victoza -] 1.8 mg SQ DAILY@0700 01/10/17 metFORMIN HCL [Glucophage -] 500 mg PO BID 01/10/17 Losartan/Hydrochlorothiazide [Hyzaar 50-12.5 Tablet] 1 each PO DAILY #30 tablet 08/26/17 Lactobacillus 3/Fos/Pantethine [Probiotic & Acidophilus Cap] 1 each PO DAILY #7 capsule 05/29/18 Azithromycin [Zithromax 250mg Tablets -] 250 mg PO UTDICT #6 tab 06/10/19 predniSONE [Deltasone -] 40 mg PO DAILY 5 Days #10 tablet 06/10/19 Respiratory Specific PMHX - Complaint Specific PMHX Hx Intubation: No Hx Asthma: Yes Hx Smoking Exposure: Yes Hx Bronchitis: No Hx Pneumonia: No Hx Pulmonary Embolus: No Hx TB (Tuberculosis): No <Yolande García - Last Filed: 06/10/19 03:11> Review of Systems - Review of Systems Able to Perform ROS?: Yes Is the patient limited [place] proficient: No Constitutional: Yes: Weight Stable. No: Chills, Diaphoresis, Fever, Loss of Appetite, Malaise, Weakness HEENTM: No: Recent change in vision, Nose Congestion, Throat Pain, Throat Swelling, Difficulty Swallowing Respiratory: Yes: See HPI, Cough, Shortness of Breath, SOB with Exertion, SOB at Rest. No: Orthopnea, Wheezing, Productive cough, Hemoptysis Cardiac (ROS): No: Chest Pain, Edema, Irregular Heart Rate, Lightheadedness, Palpitations, Syncope, Chest Tightness ABD/GI: No: Constipated, Diarrhea, Nausea, Poor Appetite, Poor Fluid Intake, Vomiting : No: Burning, Dysuria, Frequency, Flank Pain, Hematuria, Pain, Urgency Musculoskeletal: Yes: See HPI, Back Pain. No: Muscle Pain, Neck Pain Integumentary: No: Rash Neurological: No: Headache, Numbness, Weakness, Unsteady Gait, Dizziness Psychiatric: No: Sleep Pattern Change, Change in Appetite Endocrine: No: Increased Urine, Change in Weight Hematologic/Lymphatic: No: Anemia, Blood Clots, Easy Bleeding, Easy Bruising All Other Systems: Reviewed and Negative <Yolande García - Last Filed: 06/10/19 03:11> *Physical Exam - Vital Signs Last Vital Signs Temp Pulse Resp BP Pulse Ox 98.1 F 102 H 20 136/86 98 06/10/19 02:02 06/10/19 02:02 06/10/19 02:02 06/10/19 02:02 06/10/19 02:02 - Physical Exam HR 102, vitals otherwise stable, pt afebrile. Pt in NAD, morbidly obese body habitus. Pt ambulatory in ED without assistance. Pt alert and oriented x3. slot tag inserter generally intact, muscular strength and sensation intact. No midline spinal tenderness, step-offs, or crepitus. Head normocephalic, atraumatic. Eyes PERRLA, EOMI. Oropharynx without erythema or exudates, no LAD b/l. No nasal congestion. Hearing intact. Clear heart sounds, S1/S2, no JVD, b/l pedal edema, or heart murmur. Diminished lung sounds throughout with expiratory wheezing. No crackles or focal consolidations noted. No abdominal or CVA tenderness to palpation, no rebound, no guarding. Abdomen soft, non-distended, and with normoactive bowel sounds. Skin without jaundice or rash. 06/10/19 02:49 <Yolande García - Last Filed: 06/10/19 03:11> - Vital Signs Last Vital Signs Temp Pulse Resp BP Pulse Ox 98.1 F 102 H 20 136/86 98 06/10/19 02:02 06/10/19 02:02 06/10/19 02:02 06/10/19 02:02 06/10/19 02:02 <Parul Trejo - Last Filed: 06/10/19 03:43> ED Treatment Course - Medications Given in the ED: ED Medications Discontinued Medications Generic Name Dose Route Start Last Admin Trade Name Freq PRN Reason Stop Dose Admin Acetaminophen 650 mg 06/10/19 02:30 06/10/19 02:53 Tylenol - PO 06/10/19 02:31 650 mg ONCE ONE Administration Albuterol/Ipratropium 1 amp 06/10/19 02:30 06/10/19 02:53 Duoneb - NEB 06/10/19 03:01 1 amp Q15M PRN Administration WHEEZING Prednisone 40 mg 06/10/19 02:40 06/10/19 03:14 Deltasone - PO 06/10/19 02:41 40 mg ONCE ONE Administration <Parul Trejo - Last Filed: 06/10/19 03:43> Medical Decision Making - Medical Decision Making Pt was seen at bedside, also will be seen by attending Dr. Trejo. Pt presenting with dry cough, SOB progressive over 2 weeks. Pt with no known to virus exposures, no recent travel, stable vital signs; pt does not meet criteria for to testing per hospital algorithm. Likely asthma exacerbation vs atypical pneumonia, will evaluate for PE if pt not improving with asthma tx. Provided 650 mg PO tylenol for back pain, providing duonebs and 40 mg PO prednisone for improvement of wheezing. Will continue to reassess pt and monitor for symptomatic improvement. 06/10/19 02:50 Chest x-ray with increased markings at the bases, will provide z-pack and 40 mg prednisone to pts pharmacy. 06/10/19 03:00 Breathing and wheezing improved after interventions. Pt safe for d/c to home with PCP f/u. Strict return precautions provided with pts understanding. 06/10/19 03:11 <Yolande García - Last Filed: 06/10/19 03:11> Discharge - Discharge Information Problems reviewed: Yes - Admission No <Leticia Garcíaana - Last Filed: 06/10/19 03:11> <Parul Trejo - Last Filed: 06/10/19 03:43> - Discharge Information Clinical Impression/Diagnosis: SOB (shortness of breath) Asthma exacerbation Qualifiers: Asthma severity: mild Asthma persistence: intermittent Qualified Code(s): J45.21 - Mild intermittent asthma with (acute) exacerbation Condition: Improved Disposition: HOME - Additional Discharge Information Prescriptions: predniSONE [Deltasone -] 40 mg PO DAILY 5 Days #10 tablet Azithromycin [Zithromax 250mg Tablets -] 250 mg PO UTDICT #6 tab - Follow up/Referral Referrals: Juanjose Blandon [Primary Care Provider] - - Patient Discharge Instructions Patient Printed Discharge Instructions: DI for Asthma -- Adult Additional Instructions: You were seen in the ER today for cough and shortness of breath. Please follow- up with your primary care doctor within 1-2 days to discuss your visit and make sure your symptoms have improved. Please return to the ER if you have any worsening pain, development of fevers or chills, loss of consciousness, inability to tolerate food or fluids, or any other concerns. I have sent medications to your pharmacy. Please take these medications as prescribed. - Post Discharge Activity
[2019-06-10] MEDS ORDERED: ACETAMINOPHEN 325 MG TABLET (FP) PO ONE (02:30)
[2019-06-10] MEDS ORDERED: ALBUTEROL SO4 2.5/IPRATROPIUM 0.5 INH SOL 3 ML VIAL.NEB. NEB PRN (02:30)
[2019-06-10] MEDS ORDERED: predniSONE 20 MG TABLET (UD) PO ONE (02:40)
[2019-06-10] MEDS ORDERED: ACETAMINOPHEN 325 MG TABLET (FP) ONE (02:46)
[2019-06-10] MEDS ORDERED: ALBUTEROL SO4 2.5/IPRATROPIUM 0.5 INH SOL 3 ML VIAL.NEB. NEB ONE (02:46)
[2019-06-10] MEDS ORDERED: predniSONE 20 MG TABLET (UD) ONE (03:10)
== END 2019-06-10 03:28 | disposition home or self-care (01) ==
LOC: JER 02:00
PROC: 3E0F7GC Introduction of Other Therapeutic Substance into Respiratory Tract, Via Natural or Artificial Opening (ICD-10-PCS; principal; 2019-06-10)
DX: J45.21 Mild intermittent asthma with (acute) exacerbation (principal)
CPT/HCPCS: 71046-TC-FY; 94640; 99284-25

== ENCOUNTER 2020-08-08 23:53 | Emergency (ER) | payer OTHER ==
[2020-08-09 00:07] VITALS: BMI 37.5
[2020-08-09] MEDS ORDERED: GABAPENTIN 100 MG CAPSULE PO ONE (01:33)
[2020-08-09] MEDS ORDERED: MAGNESIUM OXIDE 400 MG TABLET (FP) PO ONE (01:52)
[2020-08-09] MEDS ORDERED: POTASSIUM CHLORIDE TABS 20 MEQ TABLET.ER (FP) PO ONE ×2 (01:52→02:41)
[2020-08-09] MEDS ORDERED: MAGNESIUM OXIDE 400 MG TABLET (FP) ONE (02:41)
[2020-08-09] MEDS ORDERED: GABAPENTIN 100 MG CAPSULE ONE (02:41)
[2020-08-09 05:11] VITALS: BP 155/94; PULSE 94; TEMP 98.3
== END 2020-08-09 08:00 | disposition home or self-care (01) ==
LOC: JER 23:53
DX: G25.81 Restless legs syndrome (principal); M62.272 Nontraumatic ischemic infarction of muscle, left ankle and foot; E13.42 Other specified diabetes mellitus with diabetic polyneuropathy
CPT/HCPCS: 99283-25

== ENCOUNTER 2020-10-03 02:01 | Emergency (ER) | payer OTHER ==
[2020-10-03 02:14] VITALS: TEMP 98.2; BMI 38.2
[2020-10-03] MEDS ORDERED: GABAPENTIN 100 MG CAPSULE PO ONE (04:15)
[2020-10-03] MEDS ORDERED: GABAPENTIN 100 MG CAPSULE ONE (04:34)
[2020-10-03 05:29] VITALS: BP 142/86; PULSE 73
== END 2020-10-03 05:53 | disposition home or self-care (01) ==
LOC: JER 02:01
DX: M54.42 Lumbago with sciatica, left side (principal); M54.41 Lumbago with sciatica, right side; G89.29 Other chronic pain
CPT/HCPCS: 99283-25

== ENCOUNTER 2021-05-17 10:20 | Observation (INO) | payer OTHER ==
[2021-05-17] MEDS ORDERED: SUCRALFATE 1 GM TABLET (FP) PO ONE (10:59)
[2021-05-17] MEDS ORDERED: MAG HYDROX/AL HYDROX/SIMETH 30 ML UNIT-DOSE CUP PO ONE (10:59)
[2021-05-17] MEDS ORDERED: ACETAMINOPHEN 325 MG TABLET (FP) PO ONE (10:59)
[2021-05-17] MEDS ORDERED: FAMOTIDINE 10 MG TABLET PO ONE ×2 (10:59→11:27)
[2021-05-17] MEDS ORDERED: ALBUTEROL SO4 2.5/IPRATROPIUM 0.5 INH SOL 3 ML VIAL.NEB. NEB SCH (11:00)
[2021-05-17] MEDS ORDERED: ALBUTEROL SO4 2.5/IPRATROPIUM 0.5 INH SOL 3 ML VIAL.NEB. NEB ONE (11:11)
[2021-05-17] MEDS ORDERED: ACETAMINOPHEN 325 MG TABLET (FP) ONE (11:11)
[2021-05-17] MEDS ORDERED: MAG HYDROX/AL HYDROX/SIMETH 30 ML UNIT-DOSE CUP ONE (11:12)
[2021-05-17] MEDS ORDERED: FAMOTIDINE 10 MG TABLET ONE ×2 (11:12→12:10)
[2021-05-17] MEDS ORDERED: SUCRALFATE 1 GM TABLET (FP) ONE (11:12)
[2021-05-17] MEDS ORDERED: FAMOTIDINE 20 MG/50 ML IVPB 20 MG/50 ML MG IVPB ONE (11:12)
[2021-05-17] MEDS ORDERED: ASPIRIN 81 MG CHEWABLE TABLETS PO ONE (11:28)
[2021-05-17] MEDS ORDERED: ASPIRIN 81 MG CHEWABLE TABLETS ONE (12:10)
[2021-05-17 12:28] LABS: EOS % 0.6 % (0-4.5); HEMATOCRIT 41.9 % (32.4-45.2); HEMOGLOBIN 12.9 GM/dL (10.7-15.3); LYMPH % 25.6 % (8-40); MCH 27.4 pg (25.7-33.7); MCHC 30.8 g/dl (32.0-36.0); MEAN CELL VOLUME 88.9 fl (80-96); MEAN PLT VOLUME 9.6 fl (7.5-11.1); NEUT % 63.8 % (42.8-82.8); PLATELET COUNT 252 10^3/uL (134-434); RBC 4.72 M/mm3 (3.60-5.2); RDW 17.9 % (11.6-15.6); WHITE BLOOD COUNT 10.3 K/mm3 (4.0-10.0)
[2021-05-17 12:42] LABS: CALCIUM 9.3 mg/dL (8.5-10.1)
[2021-05-17 12:43] LABS: ALBUMIN 3.3 g/dl (3.4-5.0); BLOOD UREA NITROGEN 22.9 mg/dL (7-18)
[2021-05-17 12:46] LABS: CREATININE 0.9 mg/dL (0.55-1.3)
[2021-05-17 12:47] LABS: BILIRUBIN,TOTAL 0.2 mg/dL (0.2-1)
[2021-05-17] MEDS ORDERED: ALBUTEROL SO4 2.5/IPRATROPIUM 0.5 INH SOL 3 ML VIAL.NEB. NEB PRN (15:31)
[2021-05-17] MEDS ORDERED: ACETAMINOPHEN 325 MG TABLET (FP) PO PRN (15:31)
[2021-05-17] MEDS: FAMOTIDINE 20 MG TABLET PO SCH (16:30)
[2021-05-17] MEDS: BUDESONIDE/FORMETEROL FUMARATE 80/4.5 mcg INHALER IH SCH (22:55)
[2021-05-17 23:20] VITALS: BMI 40.3
[2021-05-18 08:04] LABS: CHOLESTEROL 147 mg/dL (50-200); TRIGLYCERIDES 171 mg/dL (0-150)
[2021-05-18 08:05] LABS: LDL CHOLESTEROL (ONLY SJRH) 87 mg/dL (5-100)
[2021-05-18 08:07] LABS: HDL CHOLESTEROL 39 mg/dL (40-60)
[2021-05-18] MEDS: BUDESONIDE/FORMETEROL FUMARATE 80/4.5 mcg INHALER IH SCH ×2 (09:31→22:00)
[2021-05-18] MEDS ORDERED: REGADENOSON 0.4 MG/5 ML PRE-FILLED SYRINGE IVPUSH ONE ×2 (09:54→13:30)
[2021-05-18] MEDS: LOSARTAN 50MG/HCTZ 12.5MG 1 TAB PO SCH (14:45)
[2021-05-18] MEDS: FAMOTIDINE 20 MG TABLET PO SCH (14:46)
[2021-05-18] MEDS: ALBUTEROL SO4 HFA INHALER IH SCH ×2 (14:46→18:14)
[2021-05-18] MEDS: HYDROCORTISONE 2.5% TOPICAL CREAM 30 GM TUBE TP SCH ×2 (14:46→22:00)
[2021-05-18] MEDS ORDERED: SODIUM CHLORIDE 0.45% 1,000 ML IV SCH (15:45)
[2021-05-18 20:38] LABS: EPI CELLS 11 /uL (0-25.1); HYALINE CASTS 0 /uL (0-3.1); PH,URINE 5.5 (5.0-8.0); URINE APPEARANCE CLEAR; URINE BACTERIA 81 /uL (0-1359); URINE BILIRUBIN NEGATIVE (NEGATIVE); URINE COLOR YELLOW; URINE GLUCOSE (UA) NEGATIVE (NEGATIVE); URINE KETONE NEGATIVE (NEGATIVE); URINE LEUK ESTERASE 2+ (NEGATIVE); URINE NITRITE NEGATIVE (NEGATIVE); URINE PROTEIN NEGATIVE (NEGATIVE); URINE RBC 22 /uL (0-23.9); URINE UROBILINOGEN 0.2 mg/dL (0.2-1.0); URINE WBC 136 /uL (0-25.8)
[2021-05-19] MEDS: ALBUTEROL SO4 HFA INHALER IH SCH ×3 (05:57→12:11)
[2021-05-19] MEDS: HYDROCORTISONE 2.5% TOPICAL CREAM 30 GM TUBE TP SCH (09:44)
[2021-05-19] MEDS: FAMOTIDINE 20 MG TABLET PO SCH (09:44)
[2021-05-19] MEDS: BUDESONIDE/FORMETEROL FUMARATE 80/4.5 mcg INHALER IH SCH (09:44)
[2021-05-19] MEDS: LOSARTAN 50MG/HCTZ 12.5MG 1 TAB PO SCH (09:44)
[2021-05-19 12:26] VITALS: BP 112/63; PULSE 84; TEMP 98.5
== END 2021-05-19 14:43 | disposition home or self-care (01) ==
LOC: JER 10:20 → JERBED 13:49 → J4W 21:47
PROVIDERS: ADMIT Family Medicine; ATTEND Family Medicine
PROC: 3E033GC Introduction of Other Therapeutic Substance into Peripheral Vein, Percutaneous Approach (ICD-10-PCS; principal; 2021-05-17)
PROC: 3E0337Z Introduction of Electrolytic and Water Balance Substance into Peripheral Vein, Percutaneous Approach (ICD-10-PCS; 2021-05-17)
DX: R07.9 Chest pain, unspecified (principal); K21.9 Gastro-esophageal reflux disease without esophagitis; I10 Essential (primary) hypertension; E78.5 Hyperlipidemia, unspecified; E11.9 Type 2 diabetes mellitus without complications; R60.9 Edema, unspecified; Z72.0 Tobacco use; E66.01 Morbid (severe) obesity due to excess calories; Z68.41 Body mass index [BMI] 40.0-44.9, adult; Z88.8 Allergy status to other drugs, medicaments and biological substances
CPT/HCPCS: 36415; 71045-TC-FY; 78452-TC; 80053; 80061; 81003; 82550; 82962; 83036; 84484; 85025; 85379; 85651; 93005; 93010; 93017; 93306-TC; 93970-TC; 96361; 96374; 99285-25; A9502; C9803; G0378; J2785; U0003; U0005

== ENCOUNTER 2021-05-26 23:20 | Emergency (ER) | payer OTHER ==
[2021-05-26 23:35] VITALS: BMI 38.9
[2021-05-27 00:21] LABS: EOS % 2.5 % (0-4.5); HEMOGLOBIN 13.3 GM/dL (10.7-15.3); LYMPH % 31.2 % (8-40); MCH 28.5 pg (25.7-33.7); MCHC 32.3 g/dl (32.0-36.0); MEAN CELL VOLUME 88.3 fl (80-96); MONO % 7.7 % (3.8-10.2); NEUT % 57.6 % (42.8-82.8); PLATELET COUNT 266 10^3/uL (134-434); RBC 4.65 M/mm3 (3.60-5.2); RDW 17.8 % (11.6-15.6); WHITE BLOOD COUNT 9.4 K/mm3 (4.0-10.0)
[2021-05-27 00:49] LABS: CALCIUM 9.5 mg/dL (8.5-10.1)
[2021-05-27 00:50] LABS: ALBUMIN 3.6 g/dl (3.4-5.0); BLOOD UREA NITROGEN 18.5 mg/dL (7-18); MAGNESIUM 2.2 mg/dL (1.8-2.4)
[2021-05-27 00:53] LABS: CREATININE 1.1 mg/dL (0.55-1.3)
[2021-05-27 00:54] LABS: BILIRUBIN,TOTAL 0.2 mg/dL (0.2-1)
[2021-05-27 00:55] LABS: TOT PROT 7.4 g/dl (6.4-8.2)
[2021-05-27 06:08] VITALS: BP 141/87; PULSE 93; TEMP 98.2
== END 2021-05-27 06:08 | disposition home or self-care (01) ==
LOC: JER 23:20
DX: R42 Dizziness and giddiness (principal)
CPT/HCPCS: 36415; 70450-TC; 70486-TC; 72125-TC; 80053; 82550; 83735; 84484; 85025; 93005; 93010; 99285-25

== ENCOUNTER 2021-09-17 22:50 | Emergency (ER) | payer OTHER ==
[2021-09-17 22:55] VITALS: BP 112/75; PULSE 95; TEMP 97; BMI 34.3
[2021-09-17] MEDS ORDERED: GABAPENTIN 100 MG CAPSULE PO ONE (23:55)
[2021-09-17] MEDS ORDERED: KETOROLAC TROMETHAMINE 15 MG/ML VIAL IM ONE (23:56)
[2021-09-18] MEDS ORDERED: GABAPENTIN 100 MG CAPSULE ONE (00:22)
[2021-09-18] MEDS ORDERED: KETOROLAC TROMETHAMINE 15 MG/ML VIAL ONE (00:23)
== END 2021-09-18 06:22 | disposition home or self-care (01) ==
LOC: JER 22:50
PROC: 3E023GC Introduction of Other Therapeutic Substance into Muscle, Percutaneous Approach (ICD-10-PCS; principal; 2021-09-17)
DX: E11.40 Type 2 diabetes mellitus with diabetic neuropathy, unspecified (principal)
CPT/HCPCS: 99284-25

== ENCOUNTER 2022-07-27 02:18 | Emergency (ER) | payer OTHER ==
[2022-07-27 02:31] VITALS: BP 136/92; PULSE 108; RESP 17; TEMP 98.6; BMI 39.4
[2022-07-27] MEDS ORDERED: ACETAMINOPHEN 325 MG TABLET (FP) ONE (03:39)
== END 2022-07-27 04:09 | disposition home or self-care (01) ==
LOC: JER 02:18
DX: M79.674 Pain in right toe(s) (principal); M79.675 Pain in left toe(s); G89.29 Other chronic pain; Z59.00 Homelessness unspecified
CPT/HCPCS: 99282-25

== ENCOUNTER 2023-03-18 19:22 | Inpatient (IN) | payer OTHER ==
[2023-03-18] MEDS ORDERED: SODIUM CHLORIDE 0.9% 500 ML INFUS.BAG IV ONE (20:01)
[2023-03-18] MEDS ORDERED: METOCLOPRAMIDE HCL INJECTION 10 MG/2 ML VIAL IVPB ONE (20:04)
[2023-03-18] MEDS ORDERED: ACETAMINOPHEN 1000 MG/100 ML BAG IVPB ONE (20:08)
[2023-03-18] MEDS ORDERED: METOCLOPRAMIDE HCL INJECTION 10 MG/2 ML VIAL ONE (20:16)
[2023-03-18] MEDS ORDERED: ACETAMINOPHEN INJECTION 100 ML IVPB ONE (20:17)
[2023-03-18 20:42] LABS: EOS % 1.3 % (0-4.5); HEMATOCRIT 43.2 % (32.4-45.2); HEMOGLOBIN 13.7 GM/dL (10.7-15.3); LYMPH % 32.5 % (8-40); MCH 28.3 pg (25.7-33.7); MCHC 31.8 g/dl (32.0-36.0); MEAN PLT VOLUME 9.7 fl (7.5-11.1); MONO % 7.7 % (3.8-10.2); NEUT % 57.5 % (42.8-82.8); PLATELET COUNT 246 10^3/uL (134-434); RBC 4.85 M/mm3 (3.60-5.2); RDW 15.8 % (11.6-15.6); WHITE BLOOD COUNT 8.2 K/mm3 (4.0-10.0)
[2023-03-18 21:04] LABS: POTASSIUM 3.7 mmol/L (3.5-5.1)
[2023-03-18 21:06] LABS: ALBUMIN 3.3 g/dl (3.4-5.0); BLOOD UREA NITROGEN 16.4 mg/dL (7-18); CALCIUM 9.5 mg/dL (8.5-10.1); MAGNESIUM 2.2 mg/dL (1.8-2.4)
[2023-03-18 21:09] LABS: CREATININE 1.2 mg/dL (0.55-1.3)
[2023-03-18 21:11] LABS: BILIRUBIN,TOTAL 0.1 mg/dL (0.2-1); TOT PROT 7.1 g/dl (6.4-8.2)
[2023-03-18] MEDS ORDERED: GABAPENTIN 100 MG CAPSULE PO ONE (21:59)
[2023-03-18] MEDS ORDERED: GABAPENTIN 100 MG CAPSULE ONE (22:02)
[2023-03-19 00:31] LABS: PH,URINE 5.5 (5.0-8.0); URINE APPEARANCE CLEAR; URINE BILIRUBIN NEGATIVE (NEGATIVE); URINE COLOR YELLOW; URINE GLUCOSE (UA) NEGATIVE (NEGATIVE); URINE KETONE NEGATIVE (NEGATIVE); URINE LEUK ESTERASE TRACE (NEGATIVE); URINE NITRITE NEGATIVE (NEGATIVE); URINE PROTEIN NEGATIVE (NEGATIVE); URINE UROBILINOGEN 0.2 mg/dL (0.2-1.0)
[2023-03-19] MEDS ORDERED: ACETAMINOPHEN 325 MG TABLET (FP) PO PRN (00:34)
[2023-03-19 01:09] LABS: EPI CELLS 9 /uL (0-25.1); HYALINE CASTS 0.12 /uL (0-3.1); URINE BACTERIA 272.5 /uL (0-1359); URINE RBC 11.2 /uL (0-23.9); URINE WBC 25.2 /uL (0-25.8)
[2023-03-19] MEDS ORDERED: GABAPENTIN 100 MG CAPSULE PO ONE (02:25)
[2023-03-19] MEDS: ALBUTEROL SO4 HFA INHALER IH SCH ×4 (02:30→15:28)
[2023-03-19 05:05] VITALS: BMI 37.3
[2023-03-19] MEDS: INSULIN ASPART SLIDING SCALE (NOVOLOG) 1 VIAL SQ SCH ×4 (06:32→22:17)
[2023-03-19 09:00] LABS: BASO % 0.4 % (0-2.0); EOS % 2.4 % (0-4.5); HEMATOCRIT 41.1 % (32.4-45.2); LYMPH % 43.3 % (8-40); MCH 27.9 pg (25.7-33.7); MCHC 31.7 g/dl (32.0-36.0); MEAN CELL VOLUME 88.1 fl (80-96); MEAN PLT VOLUME 9.4 fl (7.5-11.1); MONO % 6.7 % (3.8-10.2); NEUT % 47.2 % (42.8-82.8); PLATELET COUNT 235 10^3/uL (134-434); RBC 4.66 M/mm3 (3.60-5.2); RDW 16.1 % (11.6-15.6); WHITE BLOOD COUNT 7.4 K/mm3 (4.0-10.0)
[2023-03-19] MEDS: FAMOTIDINE 20 MG TABLET PO SCH (09:03)
[2023-03-19] MEDS: ENOXAPARIN NA (PORCINE) 40 MG/0.4 ML DISP.SYRIN SQ SCH (09:03)
[2023-03-19] MEDS: GABAPENTIN 300 MG CAPSULE PO SCH ×2 (09:03→22:17)
[2023-03-19] MEDS: LOSARTAN 50MG/HCTZ 12.5MG 1 TAB PO SCH (09:09)
[2023-03-19 09:29] LABS: POTASSIUM 3.8 mmol/L (3.5-5.1)
[2023-03-19 09:32] LABS: CALCIUM 9.2 mg/dL (8.5-10.1)
[2023-03-19 09:33] LABS: ALBUMIN 3.1 g/dl (3.4-5.0); BLOOD UREA NITROGEN 18.8 mg/dL (7-18)
[2023-03-19 09:34] LABS: CREATININE 1.1 mg/dL (0.55-1.3)
[2023-03-19 09:36] LABS: BILIRUBIN,TOTAL 0.2 mg/dL (0.2-1)
[2023-03-19 09:37] LABS: TOT PROT 6.7 g/dl (6.4-8.2)
[2023-03-19] MEDS: BUDESONIDE/FORMETEROL FUMARATE 160/4.5 mcg INHALER IH SCH ×2 (11:43→22:19)
[2023-03-19] MEDS: ACETAMINOPHEN 325 MG TABLET (FP) PO PRN (13:13)
[2023-03-20] MEDS: ALBUTEROL SO4 HFA INHALER IH SCH ×4 (02:17→21:52)
[2023-03-20] MEDS: INSULIN ASPART SLIDING SCALE (NOVOLOG) 1 VIAL SQ SCH ×4 (06:26→21:57)
[2023-03-20 09:12] LABS: HEMATOCRIT 38.8 % (32.4-45.2); HEMOGLOBIN 12.6 GM/dL (10.7-15.3); MCH 28.7 pg (25.7-33.7); MCHC 32.4 g/dl (32.0-36.0); MEAN CELL VOLUME 88.5 fl (80-96); MEAN PLT VOLUME 9.4 fl (7.5-11.1); PLATELET COUNT 225 10^3/uL (134-434); RBC 4.38 M/mm3 (3.60-5.2); RDW 15.9 % (11.6-15.6); WHITE BLOOD COUNT 6.9 K/mm3 (4.0-10.0)
[2023-03-20 09:31] LABS: POTASSIUM 3.9 mmol/L (3.5-5.1)
[2023-03-20 09:38] LABS: ALBUMIN 2.9 g/dl (3.4-5.0); BLOOD UREA NITROGEN 17.4 mg/dL (7-18); PHOSPHOROUS 3.1 mg/dL (2.5-4.9)
[2023-03-20 09:39] LABS: TOT PROT 6.3 g/dl (6.4-8.2)
[2023-03-20 09:40] LABS: BILIRUBIN,TOTAL 0.2 mg/dL (0.2-1)
[2023-03-20 09:41] LABS: CREATININE 0.8 mg/dL (0.55-1.3)
[2023-03-20 09:42] LABS: CALCIUM 9.1 mg/dL (8.5-10.1); MAGNESIUM 2.1 mg/dL (1.8-2.4)
[2023-03-20] MEDS: ENOXAPARIN NA (PORCINE) 40 MG/0.4 ML DISP.SYRIN SQ SCH (09:48)
[2023-03-20] MEDS: FAMOTIDINE 20 MG TABLET PO SCH (09:49)
[2023-03-20] MEDS: GABAPENTIN 300 MG CAPSULE PO SCH ×2 (09:49→21:51)
[2023-03-20] MEDS: LOSARTAN 50MG/HCTZ 12.5MG 1 TAB PO SCH (09:59)
[2023-03-20] MEDS: BUDESONIDE/FORMETEROL FUMARATE 160/4.5 mcg INHALER IH SCH ×2 (09:59→21:52)
[2023-03-21] MEDS: ALBUTEROL SO4 HFA INHALER IH SCH ×4 (01:51→21:21)
[2023-03-21] MEDS: INSULIN ASPART SLIDING SCALE (NOVOLOG) 1 VIAL SQ SCH ×4 (06:18→21:35)
[2023-03-21] MEDS: FAMOTIDINE 20 MG TABLET PO SCH (09:20)
[2023-03-21] MEDS: ENOXAPARIN NA (PORCINE) 40 MG/0.4 ML DISP.SYRIN SQ SCH (09:20)
[2023-03-21] MEDS: LOSARTAN 50MG/HCTZ 12.5MG 1 TAB PO SCH (09:20)
[2023-03-21] MEDS: GABAPENTIN 300 MG CAPSULE PO SCH ×2 (09:20→21:21)
[2023-03-21] MEDS: BUDESONIDE/FORMETEROL FUMARATE 160/4.5 mcg INHALER IH SCH ×2 (09:22→21:23)
[2023-03-21] MEDS: ACETAMINOPHEN 325 MG TABLET (FP) PO PRN (18:08)
[2023-03-22] MEDS: ALBUTEROL SO4 HFA INHALER IH SCH ×4 (02:30→21:21)
[2023-03-22] MEDS: INSULIN ASPART SLIDING SCALE (NOVOLOG) 1 VIAL SQ SCH ×4 (07:26→21:28)
[2023-03-22 08:09] LABS: FOLLICLE STIMULATING HORMONE 62.8 mIU/mL (25.8-134.8); LUTEINIZING HORMONE 31.7 mIU/mL (7.7-58.5)
[2023-03-22] MEDS: LOSARTAN 50MG/HCTZ 12.5MG 1 TAB PO SCH (09:08)
[2023-03-22] MEDS: ENOXAPARIN NA (PORCINE) 40 MG/0.4 ML DISP.SYRIN SQ SCH (09:08)
[2023-03-22] MEDS: FAMOTIDINE 20 MG TABLET PO SCH (09:08)
[2023-03-22] MEDS: GABAPENTIN 300 MG CAPSULE PO SCH ×2 (09:08→21:23)
[2023-03-22] MEDS: BUDESONIDE/FORMETEROL FUMARATE 160/4.5 mcg INHALER IH SCH ×2 (09:12→21:23)
[2023-03-22 10:21] LABS: HEMATOCRIT 39.4 % (32.4-45.2); HEMOGLOBIN 12.7 GM/dL (10.7-15.3); MCH 28.3 pg (25.7-33.7); MCHC 32.3 g/dl (32.0-36.0); MEAN CELL VOLUME 87.7 fl (80-96); MEAN PLT VOLUME 10.1 fl (7.5-11.1); PLATELET COUNT 210 10^3/uL (134-434); WHITE BLOOD COUNT 7.1 K/mm3 (4.0-10.0)
[2023-03-22 10:36] LABS: POTASSIUM 3.9 mmol/L (3.5-5.1)
[2023-03-22 10:58] LABS: ALBUMIN 2.9 g/dl (3.4-5.0)
[2023-03-22 10:59] LABS: BLOOD UREA NITROGEN 19.7 mg/dL (7-18); CALCIUM 9.1 mg/dL (8.5-10.1); MAGNESIUM 1.8 mg/dL (1.8-2.4)
[2023-03-22 11:01] LABS: CREATININE 0.7 mg/dL (0.55-1.3)
[2023-03-22 11:03] LABS: BILIRUBIN,TOTAL 0.2 mg/dL (0.2-1); TOT PROT 6.5 g/dl (6.4-8.2)
[2023-03-22] MEDS: ACETAMINOPHEN 325 MG TABLET (FP) PO PRN (11:14)
[2023-03-22 11:51] VITALS: RESP 18
[2023-03-23] MEDS: ALBUTEROL SO4 HFA INHALER IH SCH ×2 (02:45→09:20)
[2023-03-23] MEDS: INSULIN ASPART SLIDING SCALE (NOVOLOG) 1 VIAL SQ SCH ×2 (06:42→11:41)
[2023-03-23] MEDS ORDERED: INSULIN ASPART SLIDING SCALE (NOVOLOG) 1 VIAL SQ ONE (07:23)
[2023-03-23] MEDS: FAMOTIDINE 20 MG TABLET PO SCH (09:20)
[2023-03-23] MEDS: GABAPENTIN 300 MG CAPSULE PO SCH (09:20)
[2023-03-23] MEDS: ENOXAPARIN NA (PORCINE) 40 MG/0.4 ML DISP.SYRIN SQ SCH (09:20)
[2023-03-23] MEDS: LOSARTAN 50MG/HCTZ 12.5MG 1 TAB PO SCH (09:20)
[2023-03-23] MEDS: BUDESONIDE/FORMETEROL FUMARATE 160/4.5 mcg INHALER IH SCH (09:21)
[2023-03-23 12:08] VITALS: BP 115/59; PULSE 72; TEMP 98.1
== END 2023-03-23 12:35 | disposition short-term general hospital (02) | DRG 424 ==
LOC: JER 19:22 → JERBED 23:40 → J6S 03-19 01:50
PROVIDERS: ADMIT Internal Medicine; ATTEND Internal Medicine
DX: D35.2 Benign neoplasm of pituitary gland (principal); E11.42 Type 2 diabetes mellitus with diabetic polyneuropathy; E66.3 Overweight; E78.5 Hyperlipidemia, unspecified; I10 Essential (primary) hypertension; J44.9 Chronic obstructive pulmonary disease, unspecified; J45.909 Unspecified asthma, uncomplicated; R51.9 Headache, unspecified; Z59.00 Homelessness unspecified; Z68.37 Body mass index [BMI] 37.0-37.9, adult; K21.9 Gastro-esophageal reflux disease without esophagitis
CPT/HCPCS: 0241U-QW; 36415; 70450-TC; 70543-TC; 80053; 81003; 82024; 82533; 82962; 83001; 83002; 83036; 83735; 84100; 84146; 84305; 84443; 84484; 85025; 85027; 85651; 87086; 87635; 93005; 93010; 99285-25